=== PATIENT | female | born 1980 | race Two or more races ===

== ENCOUNTER 2019-04-22 03:43 | Emergency (ER) | payer MEDICAID ==
[~2019-04-22] VITALS: Ht 162.6 cm; Wt 72.6 kg
[2019-04-22 05:41] LABS: Urine Amorphous Crystal FEW /hpf (None Seen); Urine Bacteria FEW /hpf (None Seen); Urine Blood 1+ /uL (Negative); Urine Specific Gravity 1.021 (1.001-1.035); Urine WBC 4 /hpf (0 - 5)
[2019-04-22 06:58] LABS: Mean Corpuscular Volume 77.6 fL (80.0-100.0)
[2019-04-22 06:59] LABS: Hematocrit 33.1 % (36.0-46.0); Hemoglobin 10.8 g/dL (12.2-16.2); Mean Corpuscular Hemoglobin 25.4 pg (28.0-32.0); Mean Corpuscular Hgb Conc. 32.8 g/dL (32.0-36.0); Platelet Count (auto) 351 10^3/uL (140-450); Red Blood Cells 4.26 10^6/uL (4.0-5.20); White Blood Cell 6.2 10^3/uL (4.4-10.8)
[2019-04-22 07:02] LABS: Red Cell Distribution Width 20.1 % (11.8-14.3)
[2019-04-22 07:03] LABS: Band Neutrophils % (manual) 0; Basophils % (manual) 0 (0.0-2.0); Blast Cells 0; Eosinophils % (manual) 0 (0-7); Metamyelocytes % 0; Myelocytes % 0; Promyelocytes % 0; Reactive Lymphocytes 0
[2019-04-22 07:15] LABS: Albumin 3.2 g/dL (3.4-5.0); BUN/Creatinine Ratio 19.1; Calcium 8.3 mg/dL (8.5-10.1); Potassium 3.9 mmol/L (3.5-5.1)
[2019-04-22 07:18] LABS: Bilirubin, Total 0.2 mg/dL (0.2-1.0); Total Protein 7.6 g/dL (6.4-8.2)
[2019-04-22 07:57] LABS: Lymphocytes % (manual) 29 (10.0-50.0); Monocytes % (manual) 2 (0-12)
[2019-04-22] MEDS ORDERED: cefTRIAXone SOD 1,000 MG VL IM ONE (08:00)
[2019-04-22] MEDS ORDERED: LIDOCAINE 1% HCL (LOCAL ANESTH.) INJ 20ML MDV ID ONE (08:30)
[2019-04-22] MEDS ORDERED: LIDOCAINE 1% HCL (LOCAL ANESTH.) INJ 20ML MDV IJ ONE (08:45)
[2019-04-22 09:05] VITALS: BP 119/72
== END 2019-04-22 10:29 | disposition home or self-care (01) ==
LOC: EDBD 03:43 → ER 03:46
DX: K80.20 Calculus of gallbladder without cholecystitis without obstruction (principal); N39.0 Urinary tract infection, site not specified; I10 Essential (primary) hypertension
CPT/HCPCS: 36415; 76705; 80053; 81001; 81025; 84702; 85007; 85027; 96372; 99284; J0696; J2001

== ENCOUNTER 2020-08-03 05:15 | Emergency (ER) | payer MEDICAID ==
[~2020-08-03] VITALS: Ht 162.6 cm; Wt 93.0 kg
[2020-08-03 06:29] LABS: Basophils # (auto) 0 10 ^3/uL (0-0.2); Eosinophils # (auto) 0 10 ^3/uL (0-0.8); Lymphocytes # (auto) 1.2 10 ^3/uL (0.4-5.4); Monocytes # (auto) 0.7 10 ^3/uL (0-1.3); Neutrophils # (auto) 4.2 10 ^3/uL (1.6-8.6); Nucleated Red Blood Cells % 0.1 %
[2020-08-03 06:32] LABS: Basophils % (auto) 0.3 % (0.0-2.0); Eosinophils % (auto) 0.2 % (0.0-7.0); Hematocrit 31.8 % (36.0-46.0); Hemoglobin 10.3 g/dL (12.2-16.2); Lymphocytes % (auto) 19.2 % (10.0-50.0); Mean Corpuscular Hemoglobin 22.9 pg (28.0-32.0); Mean Corpuscular Hgb Conc. 32.4 g/dL (32.0-36.0); Mean Corpuscular Volume 70.6 fL (80.0-100.0); Monocytes % (auto) 10.8 % (0.0-12.0); Neutrophils % (auto) 69.5 % (37.0-80.0); Platelet Count (auto) 448 10^3/uL (140-450); Red Blood Cells 4.51 10^6/uL (4.0-5.20); Red Cell Distribution Width 16.1 % (11.8-14.3); White Blood Cell 6.1 10^3/uL (4.4-10.8)
[2020-08-03 06:46] LABS: INR 0.95 (0.9-1.15); Partial Thromboplastin Time 23.9 sec (23.0-31.2)
[2020-08-03 07:12] LABS: Albumin 3.1 g/dL (3.4-5.0); Amylase 45 U/L (25-115); Anion Gap 7 (5-15); Blood Urea Nitrogen 5 mg/dL (7-18); Calcium 8.5 mg/dL (8.5-10.1); Carbon Dioxide 29 mmol/L (21-32); Chloride 103 mmol/L (98-107); Glucose 112 mg/dL (74-106); Lipase 121 U/L (73-393); Sodium 139 mmol/L (136-145)
[2020-08-03 07:18] LABS: Alanine Aminotransferase 83 U/L (13-56); Alkaline Phosphatase 156 U/L (45-117); Aspartate Aminotransferase 72 U/L (15-37); BUN/Creatinine Ratio 7.2; Bilirubin, Total 0.4 mg/dL (0.2-1.0); GFR African American 122 mL/min; GFR Non-African American 101 mL/min
[2020-08-03 07:37] LABS: Potassium 2.9 mmol/L (3.5-5.1)
[2020-08-03] MEDS ORDERED: POTASSIUM EFFERVESENT TAB 25 MEQ PO ONE (07:45)
[2020-08-03] MEDS ORDERED: cefTRIAXone 1GM/50ML D5W 50 ML IV ONE (08:30)
[2020-08-03 10:13] LABS: CRP High Sensitivity 0.192 mg/dL (< 0.3)
[2020-08-03] MEDS ORDERED: ONDANSETRON HCL 4 MG/2 ML VIAL ONE (10:29)
[2020-08-03] MEDS ORDERED: PANTOPRAZOLE 40 MG/10 ML VIAL INJ IV ONE (10:45)
[2020-08-03] MEDS ORDERED: ONDANSETRON HCL 4 MG/2 ML VIAL IV ONE (10:45)
[2020-08-03 12:00] VITALS: BP 126/77
== END 2020-08-03 13:10 | disposition home or self-care (01) ==
LOC: EDBD 05:15 → ER 05:15
DX: J18.9 Pneumonia, unspecified organism (principal); E87.6 Hypokalemia; E86.0 Dehydration; I10 Essential (primary) hypertension; Z20.828 Contact with and (suspected) exposure to other viral communicable diseases
CPT/HCPCS: 36415; 71045; 80053; 81025; 82150; 82728; 83605; 83615; 83690; 83880; 84484; 85025; 85610; 85730; 86141; 87040; 87426; 93005; 96365; 96375; 99285; C9113; C9803; J0696; J2405; U0003

== ENCOUNTER 2023-07-21 23:39 | Emergency (ER) | payer MEDICAID ==
[~2023-07-21] VITALS: Ht 162.6 cm; Wt 87.0 kg
[2023-07-21 23:56] VITALS: BP 152/74; PULSE 77; RESP 18; O2SAT 98
[2023-07-21] MEDS ORDERED: MUPI2OIN2 EX (23:56)
[2023-07-21] MEDS ORDERED: AUG875T PO (23:56)
[2023-07-22] MEDS ORDERED: TETANUS-DIPTH-ACEL PERTUSSIS 0.5ML SYR Tdap IM ONE
[2023-07-22] MEDS ORDERED: NEOMYCIN-BACITRACIN-POLYM UNITDOSE PKG TOP OINT TOP ONE
[2023-07-22] MEDS ORDERED: AMOXICILLIN/CLAVUL 875 MG TAB PO ONE
== END 2023-07-22 01:53 | disposition home or self-care (01) ==
LOC: ER 23:39
DX: S31.133A Puncture wound of abdominal wall without foreign body, right lower quadrant without penetration into peritoneal cavity, initial encounter (principal); S31.153A Open bite of abdominal wall, right lower quadrant without penetration into peritoneal cavity, initial encounter; W54.0XXA Bitten by dog, initial encounter; Y93.89 Activity, other specified; Y92.89 Other specified places as the place of occurrence of the external cause; Y99.8 Other external cause status
CPT/HCPCS: 90471; 90715

== ENCOUNTER 2025-08-13 02:22 | Inpatient (IN) | payer MEDICAID ==
[~2025-08-13] VITALS: Ht 162.6 cm; Wt 90.2 kg
[~2025-08-13 02:22] MED LIST: ACET-1882 PO; AUG875T PO; LIDO2SOL26 MT; MUPI2OIN2 EX; NAPR-746 PO; PENI500T2 PO
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
[2025-08-13] MEDS ORDERED: KETOROLAC TROMETH 30 MG/ML 1ML VIAL IM ONE (03:15)
[2025-08-13] MEDS: ACETAMINOPHEN 325 MG TAB PO ONE (03:15)
[2025-08-13 04:12] LABS: Chloride 104 mmol/L (98-107); Potassium 3.8 mmol/L (3.5-5.1); Sodium 138 mmol/L (136-145)
[2025-08-13 04:13] LABS: Anion Gap 10 (5-15); Carbon Dioxide 24 mmol/L (20-31)
[2025-08-13 04:14] LABS: Calcium 8.7 mg/dL (8.7-10.4)
[2025-08-13 04:18] LABS: BUN/Creatinine Ratio 14.3 (10.0-20.0); Blood Urea Nitrogen 10 mg/dL (9-23)
[2025-08-13 04:19] LABS: Glucose 119 mg/dL (74-106)
[2025-08-13 04:26] LABS: Mean Corpuscular Hemoglobin 16.4 pg (28.0-32.0)
[2025-08-13 04:28] LABS: Hematocrit 21.3 % (36.0-46.0); Mean Corpuscular Volume 55.7 fL (80.0-100.0); Nucleated Red Blood Cells % 0.0 %
[2025-08-13 04:37] LABS: Hemoglobin 6.3 g/dL (12.2-16.2)
[2025-08-13] MEDS: KETOROLAC TROMETH 30 MG/ML 1ML VIAL IV ONE (05:55)
[2025-08-13 06:08] VITALS: PULSE 66; RESP 11; O2SAT 96
[2025-08-13 06:45] LABS: Urine Protein, UAD Negative (Negative)
[2025-08-13] MEDS: IOHEXOL 300 MG/ML 100ML BOTTLE IJ ONE (07:31)
--- NOTE | 2025-08-13 07:59 | DVH ---
Exam: CT CT AB PEL WITH IV CON ONLY History: Lower abdominal pain Comparison Study: None Technique: Multidetector spiral CT of the abdomen was performed from lung bases to pubic symphysis. A xial imaging was performed with intravenous contrast following the uneventful administration of 100 m l Omnipaque 300. Coronal and sagittal multiplanar reformats were obtained from the axial data set by the technologist. Radiation Dose : 1. Abdomen/Pelvis: CTDIvol 19.67 mGy, DLP 1064.31 mGy*cm. Findings: Lung Bases: Lung bases are clear. Visualized portions of the heart and pericardium are unremarkable. Liver: The liver is normal in size. No focal lesions. Gallbladder and Biliary Tree: The gallbladder is surgically absent. No intrahepatic or extrahepatic b iliary ductal dilatation. Spleen: Unremarkable Pancreas: The pancreas enhances normally and there are no focal lesions. The main pancreatic duct is not dilated Adrenal Glands: Unremarkable Kidneys: Kidneys enhance symmetrically. No calculi or hydronephrosis. GI tract: The stomach is grossly normal in appearance. No evidence of small bowel wall thickening or abnormal dilatation to suggest bowel obstruction. The colon is unremarkable. The appendix is visualiz ed and there is no evidence of acute appendicitis. Peritoneum/mesentery/retroperitoneum. No evidence of free intraperitoneal air. No ascites. No evidenc e of suspicious lymphadenopathy. Abdominal Wall: Unremarkable. Vasculature: Abdominal aorta and main branches are unremarkable. Normal vascular enhancement. Urinary Bladder: Grossly unremarkable for degree of distention. Pelvic Organs: There is marked fluid distention of the endometrium. Status post tubal ligation in th e bilateral adnexae. Left adnexal cystic lesion is noted measuring 2.5 cm. Musculoskeletal: No aggressive focal bony lesions, acute fractures or dislocation. Soft tissues: There is a fat containing umbilical hernia. IMPRESSION: 1. Marked fluid distention of the endometrium. Pelvic ultrasound is recommended for further evaluati on. 2. Left adnexal cystic lesion measuring 2.5 cm. 3. Status post cholecystectomy.
--- NOTE | 2025-08-13 08:42 | DVHHP2 ---
History of Present Illness Reason for Visit: Abdominal pain History of Present Illness Yolis Anderson is a 45-year-old female with past medical history of anemia, who came to the hospital for abdominal pain. Patient states she began having LLQ abdomial pain about 2 days ago. The pain continued to worsen prompting her to come to the hospital. Once here it was discovered that she had severe anemia. She states she has been anemic for years. She was taking iron PO, but stopped a little over a month ago due to constipation. She has required blood transfusions in the past. The first was when she had her and the second time was around [id number]. Patient states she has heavy menstrual cycles intermittently for the last couple of years. States she did see an EDITOR MANAGING DIRECTOR about it a few years ago, but nothing was done at the time. Last menstrual cycle was 07/21/2025. Heme/Onc: Anemia NOS Past Surgical History: Cholecystectomy, (x 1), Tubal Ligation Smoke: No ALCOHOL: none Drugs: None Lives: with Family Domestic Violence: Neg Review of Systems Constitutional: No: Fever, Chills, Sweats, Weakness, Malaise, Other Eyes: No: Pain, Vision change, Conjunctivae inflammation, Eyelid inflammation, Other, Redness ENT: No: Ear pain, Ear discharge, Nose pain, Nose discharge, Nose congestion, Mouth pain, Mouth swelling, Throat pain, Throat swelling, Other Respiratory: No: Cough, Dry, Shortness of breath, SOB with excertion, Wheezing, Hemoptysis, Pleuritic Pain, Sputum, Wheezing, Other Cardiovascular: No: Chest Pain, Palpitations, Orthopnea, Paroxysmal Noc. Dyspnea, Edema, Lt Headedness, Other Gastrointestinal: Abdominal Pain (LLQ/pelvic); No: Nausea, Vomiting, Diarrhea, Constipation, Melena, Hematochezia, Other Genitourinary: No Dysuria, No Frequency, No Incontinence, No Hematuria, No Retention, No Other Musculoskeletal: No: other, neck pain, shoulder pain, arm pain, back pain, hand pain, leg pain, foot pain Skin: No: Rash, Lesions, Jaundice, Bruising, Other Neurological: No: Weakness, Numbness, Incoordination, Change in speech, Confusion, Seizures, Other Allergies: Coded Allergies: NO KNOWN ALLERGIES (Unverified , 04/22/19) Exam Vital Signs Vital Signs Date Time Temp Pulse Resp B/P (MAP) Pulse Ox O2 Delivery O2 Flow Rate FiO2 08/13/25 06:08 66 11 96 Room Air* 0 21 08/13/25 06:00 97.9 129/79 (96) 97.9 General Appearance: Alert, Oriented X3, Cooperative, mild distress HEENT: Atraumatic, PERRLA, Other (Mucous membr dry) Respiratory: Clear to auscultation, Normal air movement Cardiovascular: Regular rate, Normal S1, Normal S2, No murmurs Abdominal: Normal bowel sounds, Soft, No hepatospenomegaly, Other (LLQ tenderness) Extremities: No clubbing, No cyanosis, No edema, Normal pulses, No tenderness/swelling Skin: No rashes, No breakdown, No significant lesion Neuro: Normal gait, Normal speech, Strength at 5/5 X4 ext Psych/Mental Status: Mental status NL, Mood NL Labs/Xrays Labs Test 08/13/25 03:37 08/13/25 02:44 Range/Units White Blood Count 7.6 4.4-10.8 10^3/uL Red Blood Count 3.82 L 4.0-5.20 10^6/uL Hemoglobin 6.3 *L 12.2-16.2 g/dL Hematocrit 21.3 L 36.0-46.0 % Mean Corpuscular Volume 55.7 L 80.0-100.0 fL Mean Corpuscular Hemoglobin 16.4 L 28.0-32.0 pg Mean Corpuscular Hemoglobin Concent 29.5 L 32.0-36.0 g/dL Red Cell Distribution Width 19.1 H 11.8-14.3 % Platelet Count 576 H 140-450 10^3/uL Mean Platelet Volume 8.5 6.9-10.8 fL Neutrophils (%) (Auto) 68.7 37.0-80.0 % Lymphocytes (%) (Auto) 23.7 10.0-50.0 % Monocytes (%) (Auto) 6.4 0.0-12.0 % Eosinophils (%) (Auto) 0.7 0.0-7.0 % Basophils (%) (Auto) 0.5 0.0-2.0 % Neutrophils # (Auto) 5.2 1.6-8.6 10 ^3/uL Lymphocytes # (Auto) 1.8 0.4-5.4 10 ^3/uL Monocytes # (Auto) 0.5 0-1.3 10 ^3/uL Eosinophils # (Auto) 0.1 0-0.8 10 ^3/uL Basophils # (Auto) 0 0-0.2 10 ^3/uL Nucleated Red Blood Cells 0.0 % Sodium Level 138 136-145 mmol/L Potassium Level 3.8 3.5-5.1 mmol/L Chloride Level 104 98-107 mmol/L Carbon Dioxide Level 24 20-31 mmol/L Anion Gap 10 5-15 Blood Urea Nitrogen 10 9-23 mg/dL Creatinine 0.70 0.550-1.02 mg/dL Glomerular Filtration Rate Calc 110 >90 mL/min BUN/Creatinine Ratio 14.3 10.0-20.0 Serum Glucose 119 H 74-106 mg/dL Calcium Level 8.7 8.7-10.4 mg/dL Urine Color Light-yellow Yellow Urine Clarity Clear Clear Urine pH 6.0 5.0-9.0 Urine Specific [place] 1.021 1.001-1.035 Urine Protein Negative Negative Urine Ketones Negative Negative Urine Blood Negative Negative /uL Urine Nitrite Negative Negative Urine Bilirubin Negative Negative Urine Urobilinogen Normal Negative mg/dL Urine Leukocyte Esterase 1+ Negative /uL Urine RBC <1 0 - 4 /hpf Urine Microscopic WBC 1 0-5 /HPF Urine Squamous Epithelial Cells Few <5 /hpf Urine Bacteria None seen None Seen /hpf Urine Glucose Normal Normal mg/dL Exam: CT CT AB PEL WITH IV CON ONLY Findings: Lung Bases: Lung bases are clear. Visualized portions of the heart and pericardium are unremarkable. Liver: The liver is normal in size. No focal lesions. Gallbladder and Biliary Tree: The gallbladder is surgically absent. No intrahepatic or extrahepatic biliary ductal dilatation. Spleen: Unremarkable Pancreas: The pancreas enhances normally and there are no focal lesions. The main pancreatic duct is not dilated Adrenal Glands: Unremarkable Kidneys: Kidneys enhance symmetrically. No calculi or hydronephrosis. GI tract: The stomach is grossly normal in appearance. No evidence of small bowel wall thickening or abnormal dilatation to suggest bowel obstruction. The colon is unremarkable. The appendix is visualized and there is no evidence of acute appendicitis. Peritoneum/mesentery/retroperitoneum. No evidence of free intraperitoneal air. No ascites. No evidence of suspicious lymphadenopathy. Abdominal Wall: Unremarkable. Vasculature: Abdominal aorta and main branches are unremarkable. Normal vascular enhancement. Urinary Bladder: Grossly unremarkable for degree of distention. Pelvic Organs: There is marked fluid distention of the endometrium. Status post tubal ligation in the bilateral adnexae. Left adnexal cystic lesion is noted measuring 2.5 cm. Musculoskeletal: No aggressive focal bony lesions, acute fractures or dislocation. Soft tissues: There is a fat containing umbilical hernia. IMPRESSION: 1. Marked fluid distention of the endometrium. Pelvic ultrasound is recommended for further evaluation. 2. Left adnexal cystic lesion measuring 2.5 cm. 3. Status post cholecystectomy. SEPSIS Sepsis Screen Date sepsis recognized/suspect: Aug 13, 2025 Time Sepsis recognized/suspect: 050 Recent Procedure: No On Antibiotic Therapy: No Respiratory Rate >20: No Heart Rate >90: No Temp<36 C (96.8 F) or >38.3 C: No SBP <90 or MAP <65 mmHG: No New Acute Mental Status Change: No Is the patient on CPAP, BIPAP,: No Physician Orders Type And Screen (08/13/25 04:54) Administer Blood Products UD (08/13/25 04:54) Stool Occult Blood (08/13/25 04:54) Ct Ab Pel With Iv Con Only (08/13/25 04:56) Admit (08/13/25 08:37) Code Status (08/13/25 08:37) Hydrocodone-Acet 5/325mg Tab ([place] 5/32 (08/13/25 08:45) Ondansetron Hcl (Zofran) (08/13/25 08:45) Docusate Sodium Capsule (Colace Capsule) (08/13/25 08:45) Complete Blood Count (08/14/25 04:00) Comprehensive Metabolic Panel (08/14/25 04:00) Condition: Critical (08/13/25 08:37) Acetaminophen Tablet (Tylenol Tablet) (08/13/25 08:45) Vital Signs Date Time Temp Pulse Resp B/P (MAP) Pulse Ox O2 Delivery O2 Flow Rate FiO2 08/13/25 06:08 66 11 96 Room Air* 0 21 08/13/25 06:00 97.9 77 18 129/79 (96) 96 97.9 08/13/25 05:10 57 18 133/76 (95) 98 08/13/25 03:15 97.9 08/13/25 02:22 98.7 73 18 167/77 98 98.7 Laboratory Tests Test 08/13/25 03:37 White Blood Count 7.6 10^3/uL (4.4-10.8) Medications Medications Dose Ordered Sig/Colin Route Start Time Stop Time Status Last Admin Dose Admin Acetaminophen 650 mg ONCE ONCE PO 08/13/25 03:15 08/13/25 03:16 DC 08/13/25 03:15 650 MG Ketorolac Tromethamine 15 mg ONCE ONCE IV 08/13/25 05:45 08/13/25 05:46 DC 08/13/25 05:55 15 MG Tramadol HCl 50 mg ONCE ONCE PO 08/13/25 03:15 08/13/25 03:16 DC 08/13/25 03:15 50 MG Assessment/Plan Assessment/Plan Assessment: Severe anemia, Left adnexal cystic lesion, Plan: Admit to Med-Surg, Transfuse 1 unit PRBC, Manage/Monitor H&H closely, Pelvic ultrasound, Consider EDITOR MANAGING DIRECTOR consult, Plan discussed with: Patient My Orders Orders - NATHAN HUFFMAN Procedure Category Date Status Time Admit ADMIT 08/13/25 Verified 08:37 Code Status CODE 08/13/25 Verified 08:37 Hydrocodone-Acet PHA 08/13/25 Verified 5/325mg Tab ([place] 08:45 Ondansetron Hcl PHA 08/13/25 Verified (Zofran) 08:45 Docusate Sodium PHA 08/13/25 Verified Capsule (Colace 08:45 Complete Blood Count LAB 08/14/25 Verified 04:00 Comprehensive LAB 08/14/25 Verified Metabolic Panel 04:00 Condition: Critical KATHY 08/13/25 Verified 08:37 Acetaminophen Tablet PHA 08/13/25 Verified (Tylenol Tablet) 08:45 Date of Service: Aug 13, 2025 Billing Provider: NATHAN HUFFMAN Common Visit Codes: [id number] INP/OBS CARE (HIGH) NATHAN HUFFMAN Aug 13, 2025 08:42
[2025-08-13] MEDS ORDERED: ACETAMINOPHEN 325 MG TAB PO PRN (08:45)
[2025-08-13] MEDS ORDERED: ONDANSETRON HCL 4 MG/2 ML VIAL IV PRN (08:45)
[2025-08-13] MEDS ORDERED: DOCUSATE SOD 100 MG CAP PO PRN (08:45)
--- NOTE | 2025-08-13 09:27 | DVH ---
INDICATION: Abdominal pain, heavy periods, severe anemia TECHNIQUE: Multiple real-time grayscale transabdominal sonographic images along with color and duplex Doppler of the uterus and ovaries were obtained. COMPARISON: None FINDINGS: The uterus measures 12 X 10 X 8 cm. The endometrial stripe measures 0.9cm. Right ovary not seen. Left ovary measures 4 x 3 x 3 cm. 3 cm left ovarian cyst. IMPRESSION: 1. Endometrium appears complex with fluid collection measuring 6 cm. Follow-up ultrasound at differen t phase of menstrual cycle.
[2025-08-13] MEDS ORDERED: DOCU-265 PO (10:27)
[2025-08-13] MEDS ORDERED: FERR325T20 PO (10:27)
[2025-08-13 12:10] VITALS: BP 145/83; PULSE 67; RESP 12; TEMP 98.4
[2025-08-13 12:25] VITALS: BP 143/88; PULSE 58; RESP 18; TEMP 98.1
[2025-08-13 15:32] VITALS: BP 138/78; PULSE 71; RESP 16; TEMP 98.6
[2025-08-13 17:00] VITALS: BP 129/64; PULSE 55; RESP 18; TEMP 97.9; O2SAT 99
[2025-08-13 18:25] LABS: Hematocrit 24.3 % (36.0-46.0); Hemoglobin 7.4 g/dL (12.2-16.2); Mean Corpuscular Hemoglobin 17.6 pg (28.0-32.0); Nucleated Red Blood Cells % 0.1 %
[2025-08-13 18:28] LABS: Mean Corpuscular Volume 57.6 fL (80.0-100.0)
[2025-08-13 19:12] LABS: Anisocytosis Slight
[2025-08-13 19:13] LABS: Tear Drop Cells FEW
[2025-08-13 21:00] VITALS: BP 128/59; PULSE 62; RESP 16; TEMP 98.1; O2SAT 98
[2025-08-13] MEDS: DOCUSATE SOD 100 MG CAP PO SCH (22:00)
[2025-08-13] MEDS ORDERED: PATIENTS OWN MEDICATION (Ferrous Sulfate (Ferosul) 325 MG) PO SCH (22:00)
[2025-08-13] MEDS: FERROUS SULFATE 325mg EC TAB PO SCH (22:00)
[2025-08-13] MEDS: HYDROcodone-ACET 5/325MG TAB PO PRN (22:42)
[2025-08-14 01:00] VITALS: BP 129/65; PULSE 61; RESP 18; TEMP 97.8; O2SAT 99
[2025-08-14 05:00] VITALS: BP 146/76; PULSE 70; RESP 18; TEMP 97.5; O2SAT 98
[2025-08-14 06:07] LABS: Hematocrit 25.7 % (36.0-46.0); Hemoglobin 7.7 g/dL (12.2-16.2); Mean Corpuscular Hemoglobin 17.5 pg (28.0-32.0); Mean Corpuscular Volume 58.0 fL (80.0-100.0); Nucleated Red Blood Cells % 0.2 %
[2025-08-14 06:28] LABS: Alanine Aminotransferase 10 U/L (7-40); Albumin 4.2 g/dL (3.2-4.8); Alkaline Phosphatase 111 U/L (46-116); Anion Gap 9 (5-15); BUN/Creatinine Ratio 11.8 (10.0-20.0); Calcium 8.7 mg/dL (8.7-10.4); Carbon Dioxide 27 mmol/L (20-31); Chloride 105 mmol/L (98-107); Glucose 99 mg/dL (74-106); Potassium 4.1 mmol/L (3.5-5.1); Sodium 141 mmol/L (136-145); Total Protein 8.0 g/dL (5.7-8.2)
[2025-08-14 06:29] LABS: Bilirubin, Total 0.5 mg/dL (0.2-1.0)
[2025-08-14 06:30] LABS: Blood Urea Nitrogen 8 mg/dL (9-23)
[2025-08-14] MEDS ORDERED: FER325T PO (07:52)
[2025-08-14] MEDS ORDERED: HYDR-4902 PO (07:52)
--- NOTE | 2025-08-14 07:58 | DVHDS2 ---
Discharge Summary Date of Admission Aug 13, 2025 at 08:37 Date of Discharge: Aug 14, 2025 Admitting Diagnosis Symptomatic anemia Labs/Diagnostic Data: Laboratory Results Test 08/14/25 05:42 08/13/25 18:08 08/13/25 02:44 White Blood Count 6.6 10^3/uL (4.4-10.8) Red Blood Count 4.43 10^6/uL (4.0-5.20) Hemoglobin 7.7 g/dL (12.2-16.2) Hematocrit 25.7 % (36.0-46.0) Mean Corpuscular Volume 58.0 fL (80.0-100.0) Mean Corpuscular Hemoglobin 17.5 pg (28.0-32.0) Mean Corpuscular Hemoglobin Concent 30.1 g/dL (32.0-36.0) Red Cell Distribution Width 20.1 % (11.8-14.3) Platelet Count 592 10^3/uL (140-450) Mean Platelet Volume 8.3 fL (6.9-10.8) Neutrophils (%) (Auto) 57.3 % (37.0-80.0) Lymphocytes (%) (Auto) 32.2 % (10.0-50.0) Monocytes (%) (Auto) 8.5 % (0.0-12.0) Eosinophils (%) (Auto) 1.3 % (0.0-7.0) Basophils (%) (Auto) 0.7 % (0.0-2.0) Neutrophils # (Auto) 3.8 10 ^3/uL (1.6-8.6) Lymphocytes # (Auto) 2.1 10 ^3/uL (0.4-5.4) Monocytes # (Auto) 0.6 10 ^3/uL (0-1.3) Eosinophils # (Auto) 0.1 10 ^3/uL (0-0.8) Basophils # (Auto) 0 10 ^3/uL (0-0.2) Nucleated Red Blood Cells 0.2 % Sodium Level 141 mmol/L (136-145) Potassium Level 4.1 mmol/L (3.5-5.1) Chloride Level 105 mmol/L (98-107) Carbon Dioxide Level 27 mmol/L (20-31) Anion Gap 9 (5-15) Blood Urea Nitrogen 8 mg/dL (9-23) Creatinine 0.68 mg/dL (0.550-1.02) Glomerular Filtration Rate Calc 111 mL/min (>90) BUN/Creatinine Ratio 11.8 (10.0-20.0) Serum Glucose 99 mg/dL (74-106) Calcium Level 8.7 mg/dL (8.7-10.4) Total Bilirubin 0.5 mg/dL (0.2-1.0) Aspartate Amino Transferase (AST) 14 U/L (13-40) Alanine Aminotransferase (ALT) 10 U/L (7-40) Alkaline Phosphatase 111 U/L (46-116) Total Protein 8.0 g/dL (5.7-8.2) Albumin 4.2 g/dL (3.2-4.8) Platelet Estimate Increased Hypochromasia (manual) Marked Anisocytosis (manual) Slight Microcytosis Marked Tear Drop Cells Few Urine Color Light-yellow (Yellow) Urine Clarity Clear (Clear) Urine pH 6.0 (5.0-9.0) Urine Specific [place] 1.021 (1.001-1.035) Urine Protein Negative (Negative) Urine Ketones Negative (Negative) Urine Blood Negative /uL (Negative) Urine Nitrite Negative (Negative) Urine Bilirubin Negative (Negative) Urine Urobilinogen Normal mg/dL (Negative) Urine Leukocyte Esterase 1+ /uL (Negative) Urine RBC <1 /hpf (0 - 4) Urine Microscopic WBC 1 /HPF (0-5) Urine Squamous Epithelial Cells Few /hpf (<5) Urine Bacteria None seen /hpf (None Seen) Urine Glucose Normal mg/dL (Normal) Other Laboratory Tests 08/14/25 05:42 Brief Hx & Hospital Course: History of Present Illness Yolis Anderson is a 45-year-old female with past medical history of anemia, who came to the hospital for abdominal pain. Patient states she began having LLQ abdomial pain about 2 days ago. The pain continued to worsen prompting her to come to the hospital. Once here it was discovered that she had severe anemia. She states she has been anemic for years. She was taking iron PO, but stopped a little over a month ago due to constipation. She has required blood transfusions in the past. The first was when she had her and the second time was around [id number]. Patient states she has heavy menstrual cycles intermittently for the last couple of years. States she did see an F[employer]ER [employer]TER HELPER about it a few years ago, but nothing was done at the time. Last menstrual cycle was 07/21/2025. Course of hospitalization: Patient has CT scan of the abdomen and pelvis which revealed left adnexal cystic lesion. Patient currently not on her menstruation, but does report having some crampy, as if she has been found to have having menstruation. Patient also has a history of iron-deficiency anemia, for which she has been off iron supplementation secondary to constipation. Patient states that she currently does not have a prescription heart medications at home for her ADA. She received 1 unit PRBC, with H and H holding at 7.7 and 25.7. Patient is agreeable to be discharged home and follow up with her primary OBGYN as an outpatient for further treatment of her dysmenorrhea and her PCP regarding her ID. Patient will have a prescription of Wilson and iron supplementation with the time of discharge. She is agreeable with discharge plan. All questions answered. Physical examination General: Alert and Oriented x3. No acute distress. Well-nourished. Obese Eyes: EOMI. Anicteric. HENT: Moist mucous membranes. Lungs: Clear to auscultation bilaterally. No accessory muscle use. Cardiovascular: Regular rate and rhythm. No murmur. No JVD. Abdomen: Soft, non-tender and non-distended. No palpable masses. Extremities: No edema. Non-tender. Skin: No rashes or lesions. Warm. Neurologic: No focal neurological deficits. CN II-XII grossly intact, but not individually tested. Psychiatric: Cooperative. Appropriate mood and affect. Total time spent with patient discussing and formulating plan of care: 35 minutes. This medical document was created using an electronic medical record system with [employer] dictation system. Although this document has been carefully reviewed, there may still be some phonetic and typographical errors. These areas are purely typographical due to imperfections of the software programs, and do not reflect any compromise in the patient's medical care. Condition at Discharge: Fair Final Diagnosis/Problems List Symptomatic Anemia, LORRI Left adnexal cystic lesion Dysmenorrhea Discharge Disposition: Home Discharge Instruct/Medications Diet: Regular Activity: No Restrictions, As Tolerated Follow Up/Referral: Follow up with PCP in 1-2 weeks Follow up with outpatient OBGYN to discuss further treatment for dysmenorrhea Medications: Ferrous sulfate 325 mg p.o. b.i.d. Wilson 5/325 q.8 hours as needed for [id number] pain Scheduled Acetaminophen (Acetaminophen), 325 MG PO TID Docusate Sodium (Docusate Sodium), 1 CAP PO BID, (Reported) Ferrous Sulfate (Ferosul), 325 MG PO BID, (Reported) Ferrous Sulfate (Ferrous Sulfate), 1 TAB PO BID Scheduled PRN Hydrocodone-Acetaminophen (Hydrocodone Bitartrate/AC 5-325 mg), 1 TAB PO Q8HP PRN Discontinued Medications Amoxicillin & Pot Clavulanate (Augmentin Tablet), 1 TAB PO BID Lidocaine HCl (Mouth-Throat) (Lidocaine HCl Viscous), 15 ML MT TID Naproxen (Naproxen), 500 MG PO BIDPC Penicillin V Potassium (Veetids), 1 TAB PO BID 36 Discharge Statement: "Patient was advised to return to the ER or call 911 if any headaches, dizziness, shortness of breath, chest pain, abdominal pain, bleeding, fevers, or worsening of medical condition. Patient was counseled about treatment plan, medications, possible side effects, patientverbalized understanding. All questions were answered to the best of my ability. This discharge took greater then 30 minutes in planning, reviewing documentation, counseling the patient, and discussing with other team members." ASSESSMENT ASSESSMENT Assessment Symptomatic Anemia Date of Service: Aug 14, 2025 Billing Provider: MONY RANDLE NP Common Visit Codes: 93948-AEP/OBS DISCH DAY >30min MONY RANDLE NP Aug 14, 2025 07:58
[2025-08-14 09:11] VITALS: BP 124/70; PULSE 68; RESP 18; TEMP 98.1; O2SAT 97
[2025-08-14] MEDS ORDERED: FERROUS SULFATE 325mg EC TAB PO SCH (10:00)
== END 2025-08-14 10:09 | disposition home or self-care (01) | DRG 663 ==
LOC: ER 02:22 → OVERFLOW 08:37
PROVIDERS: ADMIT Nurse Practitioner Acute Care; ATTEND Nurse Practitioner Acute Care
PROC: 30233N1 Transfusion of Nonautologous Red Blood Cells into Peripheral Vein, Percutaneous Approach (ICD-10-PCS; principal; 2025-08-13)
DX: D50.9 Iron deficiency anemia, unspecified (principal); I10 Essential (primary) hypertension; N94.6 Dysmenorrhea, unspecified; N83.292 Other ovarian cyst, left side; N92.0 Excessive and frequent menstruation with regular cycle; Z90.49 Acquired absence of other specified parts of digestive tract; Z79.899 Other long term (current) drug therapy
CPT/HCPCS: 36415; 74177; 76830; 76856; 80048; 80053; 81001; 85025; 86850; 86900; 86901; 86920; 96374; G0378; J1885

== ENCOUNTER 2025-08-26 04:01 | Emergency (ER) | payer MEDICAID ==
[~2025-08-26] VITALS: Ht 162.6 cm; Wt 88.3 kg
[~2025-08-26 04:01] MED LIST changes: -AUG875T PO; +DOCU-265 PO; +FER325T PO; +FERR325T20 PO; +HYDR-4902 PO; -LIDO2SOL26 MT; -MUPI2OIN2 EX; -NAPR-746 PO; -PENI500T2 PO
--- NOTE | 2025-08-26 04:27 | ED.PDOC ---
GI ASSESSMENT HPI Comments 45-year-old female who came to ER for abdominal pain. Patient was admitted here last August 13, complaining of left lower quadrant abdominal pain, diagnosed with 1. Symptomatic Anemia, LORRI, 2. Left adnexal cystic lesion, 3. Dysmenorrhea. Sent home with [place] as pain medications. Recurrence of left lower quadrant abdominal pain prompted patient to come to the ER Chief Complaint: Abdominal Pain Time Seen by MD: 04:25 Primary Care Provider: None Reviewed Notes: Nurses Notes Allergies: Coded Allergies: NO KNOWN ALLERGIES (Unverified , 08/13/25) Home Meds Active Scripts Hydrocodone-Acetaminophen (Hydrocodone Bitartrate/AC 5-325 mg) 1 Tab Tab, 1 TAB PO Q8HP PRN for 5 Days, #15 TAB Prov:MONY RANDLE ENTERTAINMENT DANCER 08/14/25 Ferrous Sulfate (FERROUS SULFATE) 325 Mg Tb, 1 TAB PO BID for 30 Days, #60 TAB 3 Refills Prov:MONY RANDLE ENTERTAINMENT DANCER 08/14/25 Acetaminophen (Acetaminophen) 325 Mg Tab, 325 MG PO TID for 7 Days, #21 TAB 0 Refills Prov:ZULY DELGADILLO NP 08/12/24 Reported Medications Docusate Sodium (Docusate Sodium) 100 Mg Cap, 1 CAP PO BID 08/13/25 Ferrous Sulfate (Ferosul) 325 Mg Tab, 325 MG PO BID 08/13/25 Information Source: Patient Mode of Arrival: Ambulatory Timing: Days Duration: Intermittent Past Medical History PAST MEDICAL HISTORY: Anemia, Gallstones, HTN Surgical History: MERCHANDISE DISTRIBUTOR History: Denies all MERCHANDISE DISTRIBUTOR Hx Family History Family History: Unknown Social History Smoker: Non-Smoker Alcohol: Denies ETOH Use Drugs: Denies Drug Use Lives In: Home Constitutional: denies: chills, diaphoresis, fatigue, fever, malaise, sweats, weakness, others Respiratory: denies: cough, hemoptysis, orthopnea, SOB at rest, shortness of breath, SOB with excertion, stridor, wheezing, others Cardiovascular: denies: chest pain, dizzy spells, diaphoresis, Dyspnea on exertion, edema, irregular heart beat, left arm pain, lightheadedness, palpitations, PND, syncope, others Gastrointestinal: reports: abdominal pain (Left lower quad); denies: abdomen distended, blood streaked bowels, constipated, diarrhea, dysphagia, difficulty swallowing, hematemesis, melena, nausea, poor appetite, poor fluid intake, rectal bleeding, rectal pain, vomiting, others Genitourinary: denies: abnormal vagina bleeding, burning, dyspareunia, dysuria, flank pain, frequency, hematuria, incontinence, pain, , vagina discharge, urgency, others Neurological: denies: dizziness, fainting, headache, left sided numbness, left sided weakness, numbness, paresthesia, pre-existing deficit, right sided numbness, right sided weakness, seizure, speech problems, tingling, tremors, weakness, others Musculoskeletal: denies: back pain, gout, joint pain, joint swelling, muscle pain, muscle stiffness, neck pain, others Integumetry: denies: bruises, change in color, change in hair/nails, dryness, laceration, lesions, lumps, rash, wounds, others Allergic/Immunocompromised: denies: Difficulty Healing, Frequent Infections, Hives, Itching, others Hematologic/Lymphatic: denies: anemia, blood clots, easy bleeding, easy bruising, swollen glands, others Endocrine: denies: excessive hunger, excessive sweating, excessive thirst, excessive urination, flushing, intolerance to cold, intolerance to heat, unexplained weight gain, unexplained weight loss, others Psychiatric: denies: anxiety, bipolar disorder, depression, hopeless, panic disorder, schizophrenia, sleepless, suicidal, others Physical Exam General Appearance: Moderate Distress, Normal HEENT: Normal ENT Inspection, Pharynx Normal, TMs Normal Neck: Full Range of Motion, Non-Tender, Normal, Normal Inspection Respiratory: Chest Non-Tender, Lungs Clear, No Accessory Muscle Use, No Respiratory Distress, Normal Breath Sounds Cardiovascular: No Edema, No JVD, No Murmur, No Gallop, Normal Peripheral Pulses, Regular Rate/Rhythm Breast Exam: Deferred Gastrointestinal: Diffuse, No Organomegaly, No Pulsatile Mass, Normal Bowel Sounds, Soft Genitalia: Deferred Pelvic: Deferred Rectal: Deferred Extremities: No calf tenderness, Normal capillary refill, Normal inspection, Normal range of motion, Non-tender, No pedal edema Musculoskeletal : Apperance: Normal Neurologic: Alert, single stayer operator II-XII nml as Tested, No Motor Deficits, Normal Affect, Normal Mood, No Sensory Deficits Cerebellar Function: Normal Reflexes: Normal Skin: Dry, Normal Color, Warm Peripheral Pulses: 3+ Radial (R), 3+ Radial (L) Lymphatic: No Adenopathy Was a procedure done? Was a procedure done?: No GI differential Dx Differential Diagnosis: Constipation, Diverticular disease, Esophagitis, Gastritis/PUD, Gastroenteritis, Ovarian cyst/torsion, Anemia, Other (Left adnexal cyst) X-Ray, Labs, Meds, VS Vital Signs Date Time Temp Pulse Resp B/P (MAP) Pulse Ox O2 Delivery O2 Flow Rate FiO2 08/26/25 06:04 70 16 98 Room Air* 0 21 08/26/25 05:25 70 17 153/98 08/26/25 05:12 98.8 70 18 153/98 (116) 99 98.8 08/26/25 04:01 98.9 76 18 145/87 97 98.9 Lab Test 08/26/25 04:38 Range/Units White Blood Count 6.1 4.4-10.8 10^3/uL Red Blood Count 4.21 4.0-5.20 10^6/uL Hemoglobin 7.8 L 12.2-16.2 g/dL Hematocrit 25.0 L 36.0-46.0 % Mean Corpuscular Volume 59.3 L 80.0-100.0 fL Mean Corpuscular Hemoglobin 18.6 L 28.0-32.0 pg Mean Corpuscular Hemoglobin Concent 31.3 L 32.0-36.0 g/dL Red Cell Distribution Width 25.3 H 11.8-14.3 % Platelet Count 596 H 140-450 10^3/uL Mean Platelet Volume 8.7 6.9-10.8 fL Neutrophils (%) (Auto) 69.5 37.0-80.0 % Lymphocytes (%) (Auto) 23.3 10.0-50.0 % Monocytes (%) (Auto) 6.2 0.0-12.0 % Eosinophils (%) (Auto) 0.5 0.0-7.0 % Basophils (%) (Auto) 0.5 0.0-2.0 % Neutrophils # (Auto) 4.2 1.6-8.6 10 ^3/uL Lymphocytes # (Auto) 1.4 0.4-5.4 10 ^3/uL Monocytes # (Auto) 0.4 0-1.3 10 ^3/uL Eosinophils # (Auto) 0 0-0.8 10 ^3/uL Basophils # (Auto) 0 0-0.2 10 ^3/uL Nucleated Red Blood Cells 0.1 % Platelet Estimate Increased Large Platelets Few Hypochromasia (manual) Moderate Anisocytosis (manual) Slight Microcytosis Marked Ovalocytes Few Sodium Level 141 136-145 mmol/L Potassium Level 3.7 3.5-5.1 mmol/L Chloride Level 106 98-107 mmol/L Carbon Dioxide Level 27 20-31 mmol/L Anion Gap 8 5-15 Blood Urea Nitrogen 9 9-23 mg/dL Creatinine 0.69 0.550-1.02 mg/dL Glomerular Filtration Rate Calc 110 >90 mL/min BUN/Creatinine Ratio 13.0 10.0-20.0 Serum Glucose 105 74-106 mg/dL Calcium Level 8.8 8.7-10.4 mg/dL Total Bilirubin 0.4 0.2-1.0 mg/dL Aspartate Amino Transferase (AST) 14 13-40 U/L Alanine Aminotransferase (ALT) < 9 7-40 U/L Alkaline Phosphatase 113 46-116 U/L Total Protein 8.4 H 5.7-8.2 g/dL Albumin 4.4 3.2-4.8 g/dL Lipase 31 12-53 U/L Current Medications Medications (Trade) Dose Ordered Sig/Colin Route Start Time Stop Time Status Last Admin Ondansetron HCl (Zofran) 4 mg ONCE ONCE IV 08/26/25 04:30 08/26/25 04:31 DC 08/26/25 05:28 Sodium Chloride 1,000 ml @ 1,000 mls/hr Q1H ONCE IVB 08/26/25 04:30 08/26/25 05:29 DC 08/26/25 05:28 Morphine Sulfate 4 mg ONCE ONCE IV 08/26/25 04:30 08/26/25 04:31 DC 08/26/25 05:25 Patient alert. Came in for vaginal bleeding. Vitals stable. Answering questions. Establish intravenous access. Was given fluids. Was given pain medication. Anemia. Was given ferrous sulfate. Reviewed ultrasound no change. CT scan of the abdomen does not show any acute abdominal but pelvic process. Patient we will be admitted for severe anemia. Continue monitoring. Time of 1ST Reevaluation: 04:26 Reevaluation 1ST: Unchanged Patient Education/Counseling: Diagnosis, Treatment Family Education/Counseling: Diagnosis, Treatment SEPSIS Sepsis Screen Date sepsis recognized/suspect: Aug 26, 2025 Time Sepsis recognized/suspect: 400 Recent Procedure: No On Antibiotic Therapy: No Respiratory Rate >20: No Heart Rate >90: No Temp<36 C (96.8 F) or >38.3 C: No SBP <90 or MAP <65 mmHG: No New Acute Mental Status Change: No Is the patient on CPAP, BIPAP,: No Physician Orders Urinalysis (08/26/25 04:07) Pelvic (08/26/25 04:21) Ct Ab Pel With Iv Con Only (08/26/25 04:21) Vital Signs Date Time Temp Pulse Resp B/P (MAP) Pulse Ox O2 Delivery O2 Flow Rate FiO2 08/26/25 06:04 70 16 98 Room Air* 0 21 08/26/25 05:25 70 17 153/98 08/26/25 05:12 98.8 70 18 153/98 (116) 99 98.8 08/26/25 04:01 98.9 76 18 145/87 97 98.9 Laboratory Tests Test 08/26/25 04:38 White Blood Count 6.1 10^3/uL (4.4-10.8) Medications Medications Dose Ordered Sig/Colin Route Start Time Stop Time Status Last Admin Dose Admin Morphine Sulfate 4 mg ONCE ONCE IV 08/26/25 04:30 08/26/25 04:31 DC 08/26/25 05:25 Ondansetron HCl 4 mg ONCE ONCE IV 08/26/25 04:30 08/26/25 04:31 DC 08/26/25 05:28 Sodium Chloride 1,000 ml @ 1,000 mls/hr Q1H ONCE IVB 08/26/25 04:30 08/26/25 05:29 DC 08/26/25 05:28 Departure 1 Departure Time of Disposition: 07:53 Impression: Primary Impression: Acute abdominal pain Additional Impressions: Severe anemia Ovarian cyst Qualified Codes: N83.201 - Unspecified ovarian cyst, right side Disposition: 09 ADMITTED INPATIENT Admit to: Med Surg Condition: Guarded Critical Care Note Critical Care Time?: No Stability Stability form required: No Heart Score Heart Score: Heart Score Response (Comments) Value History N/A 0 EKG N/A 0 Age N/A 0 Risk Factors N/A 0 Troponin N/A 0 Total 0 I personally scribed for ANDREW ELENA MD ([email or web address]) on 08/26/25 at 04:27. Electronically submitted by Kapil Dubose ([email or web address]). ANDREW ELENA MD Aug 26, 2025 04:27 YENIFER BALLARD MD Aug 26, 2025 07:54
[2025-08-26 05:04] LABS: Hemoglobin 7.8 g/dL (12.2-16.2)
[2025-08-26 05:08] LABS: Hematocrit 25.0 % (36.0-46.0); Mean Corpuscular Hemoglobin 18.6 pg (28.0-32.0); Mean Corpuscular Volume 59.3 fL (80.0-100.0); Nucleated Red Blood Cells % 0.1 %
[2025-08-26 05:12] VITALS: TEMP 98.8
[2025-08-26 05:17] LABS: Alkaline Phosphatase 113 U/L (46-116); Anion Gap 8 (5-15); BUN/Creatinine Ratio 13.0 (10.0-20.0); Calcium 8.8 mg/dL (8.7-10.4); Carbon Dioxide 27 mmol/L (20-31); Chloride 106 mmol/L (98-107); Glucose 105 mg/dL (74-106); Potassium 3.7 mmol/L (3.5-5.1); Sodium 141 mmol/L (136-145)
[2025-08-26 05:18] LABS: Albumin 4.4 g/dL (3.2-4.8); Bilirubin, Total 0.4 mg/dL (0.2-1.0)
[2025-08-26 05:25] VITALS: BP 153/98
[2025-08-26] MEDS: MORPHINE SULFATE 4 MG/ML SYR/VIAL IV ONE (05:25)
[2025-08-26 05:27] LABS: Alanine Aminotransferase < 9 U/L (7-40); Blood Urea Nitrogen 9 mg/dL (9-23); Total Protein 8.4 g/dL (5.7-8.2)
[2025-08-26] MEDS: ONDANSETRON HCL 4 MG/2 ML VIAL IV ONE (05:28)
[2025-08-26] MEDS: SODIUM CHLORIDE 0.9% 1,000 ML IVB ONE (05:28)
[2025-08-26] MEDS: IOHEXOL 300 MG/ML 100ML BOTTLE IJ ONE (05:47)
[2025-08-26 05:50] LABS: Lipase 31 U/L (12-53)
[2025-08-26 05:51] LABS: Anisocytosis Slight; Ovalocytes FEW
[2025-08-26 06:04] VITALS: PULSE 70; RESP 16; O2SAT 98
--- NOTE | 2025-08-26 06:22 | DVH ---
Exam: CT CT AB PEL WITH IV CON ONLY History: lower abd pain Comparison Study: US PELVIC on DOS: 08/13/25 Technique: Multidetector spiral CT of the abdomen was performed from lung bases to pubic symphysis. A xial imaging was performed with intravenous contrast following the uneventful administration of 100 m l Omnipaque 300. Coronal and sagittal multiplanar reformats were obtained from the axial data set by the technologist. Radiation Dose : 1. Abdomen/Pelvis: CTDIvol 21.8 mGy, DLP 1211.32 mGy*cm. Findings: Lung Bases: Lung bases are clear. Visualized portions of the heart and pericardium are unremarkable. Liver: The liver is normal in size. No focal lesions. Gallbladder and Biliary Tree: The gallbladder is surgically absent. Intrahepatic biliary ductal dila tation. The common bile duct is not dilated. Spleen: Unremarkable Pancreas: The pancreas enhances normally and there are no focal lesions. The main pancreatic duct is not dilated Adrenal Glands: Unremarkable Kidneys: Kidneys enhance symmetrically. No calculi or hydronephrosis. GI tract: The stomach is grossly normal in appearance. No evidence of small bowel wall thickening or abnormal dilatation to suggest bowel obstruction. The colon is unremarkable. The appendix is visuali zed and is normal. Peritoneum/mesentery/retroperitoneum. No evidence of free intraperitoneal air. Small volume pelvic fr ee fluid. No evidence of suspicious lymphadenopathy. Abdominal Wall: Unremarkable. Vasculature: Abdominal aorta and main branches are unremarkable. Normal vascular enhancement. Urinary Bladder: Grossly unremarkable for degree of distention. Pelvic Organs: Uterus is enlarged. There is fluid distending the endometrium. Status post tubal ligat ion. Musculoskeletal: No aggressive focal bony lesions, acute fractures or dislocation. IMPRESSION: 1. No acute abdominal or pelvic findings. 2. Fluid distending the endometrium. A similar finding was present on a pelvic ultrasound from 2024. Gynecologic consultation is suggested for further workup and management.
--- NOTE | 2025-08-26 07:26 | DVH ---
INDICATION: lower abd pain h/o adnexal lesion TECHNIQUE: Multiple real-time grayscale transabdominal sonographic images along with color and duplex Doppler of the uterus and ovaries were obtained. COMPARISON: US PELVIC on DOS: 08/13/25. CT abdomen pelvis same date. FINDINGS: The uterus measures 11.3 x 10.1 x 7.0 cm. The uterus is homogenous in echotexture. The endo metrial stripe not accurately measured due to marked fluid distending the endometrium that measures 5 .8 cm. The right ovary measures 2.8 x 2.1 x 2.1 cm. Multiple follicles noted. The left ovary measures 3.6 x 2.9 x 2.6 cm. There is a cyst in the left ovary measuring 2.2 x 2.0 x 1.6 cm. Subsequent color and duplex Doppler interrogation of the ovaries demonstrated symmetric vascular flow to both ovaries. No free fluid in the cul-de-sac. IMPRESSION: 1. Marked fluid distending the endometrium measuring 5.8 cm similar to prior ultrasound from 08/13/25. Gynecologic consultation is suggested for further workup and management. 2. Left ovarian cyst measuring 2.2 cm.
[2025-08-26 08:46] LABS: Urine Protein, UAD TRACE (Negative)
== END 2025-08-26 08:26 | disposition left against medical advice (07) ==
LOC: ER 04:01
DX: D50.9 Iron deficiency anemia, unspecified (principal); R10.32 Left lower quadrant pain; N83.202 Unspecified ovarian cyst, left side; I10 Essential (primary) hypertension; Z79.899 Other long term (current) drug therapy
CPT/HCPCS: 36415; 74177; 76830; 76856; 80053; 81001; 83690; 85025; 96361; 96374; 96375; 99285; J2270; J2405; J7030; Q9967

== ENCOUNTER 2025-09-13 00:48 | Emergency (ER) | payer MEDICAID ==
[~2025-09-13] VITALS: Ht 157.5 cm; Wt 89.3 kg
--- NOTE | 2025-09-13 01:23 | ED.PDOC ---
History of Present Illness HPI Comments 45-year-old female with past medical history of anemia , HTN (not currently on medications) presenting for evaluation of lightheadedness, nausea, shortness of breath which started a few hours ago. Patient reports that she was out working all day and did not eat much. Reports that after she left work she started feeling nauseous. She ate something and felt even more nauseous. Denies any abdominal pain with this. Reports feeling lightheaded, however, no room spinning sensation. Having some subjective shortness of breath with this. Reports last blood transfusion was about a month ago, last LMP was about 3 weeks ago. Has severe anemia related to having menstrual cycles. Is not currently menstruating. Reports compliance with her iron supplementation. Denies any fevers. No recent cough. No associated chest pain. Denies any increased lower extremity edema. Patient with elevated blood pressure upon arrival. She states that she last saw her primary care doctor a couple weeks ago. Has not been on hypertension medications for 1-2 years. Was told that her blood pressure was normal when she was in clinic within the past couple of weeks. Chief Complaint: Dizziness Time Seen by MD: 00:55 Primary Care Provider: None Allergies: Coded Allergies: NO KNOWN ALLERGIES (Unverified , 08/13/25) Home Meds Active Scripts Ondansetron HCl (Ondansetron) 4 Mg Tab, 4 MG PO Q6HPRN PRN for 3 Days, #12 TAB Prov:FAITH OLIVARES MD 09/13/25 Hydrocodone-Acetaminophen (Hydrocodone Bitartrate/AC 5-325 mg) 1 Tab Tab, 1 TAB PO Q8HP PRN for 5 Days, #15 TAB Prov:MONY RANDLE NP 08/14/25 Ferrous Sulfate (FERROUS SULFATE) 325 Mg Tb, 1 TAB PO BID for 30 Days, #60 TAB 3 Refills Prov:MONY RANDLE NP 08/14/25 Acetaminophen (Acetaminophen) 325 Mg Tab, 325 MG PO TID for 7 Days, #21 TAB 0 Refills Prov:ZULY DELGADILLO NP 08/12/24 Reported Medications Docusate Sodium (Docusate Sodium) 100 Mg Cap, 1 CAP PO BID 08/13/25 Ferrous Sulfate (Ferosul) 325 Mg Tab, 325 MG PO BID 08/13/25 Information Source: Patient Mode of Arrival: Ambulatory Past Medical History PAST MEDICAL HISTORY: Anemia, Gallstones, HTN 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 Family History Family History: Unknown Social History Smoker: Non-Smoker Alcohol: Denies ETOH Use Drugs: Denies Drug Use Lives In: Home Constitutional: denies: chills, diaphoresis, fatigue, fever, malaise, sweats, weakness, others EENTM: denies: blurred vision, double vision, ear bleeding, ear discharge, ear drainage, ear pain, ear ringing, eye pain, eye redness, hearing loss, mouth pain, mouth swelling, nasal discharge, nose bleeding, nose congestion, nose pain, photophobia, tearing, throat pain, throat swelling, voice changes, others Respiratory: reports: shortness of breath Cardiovascular: denies: chest pain, dizzy spells, diaphoresis, Dyspnea on exertion, edema, irregular heart beat, left arm pain, lightheadedness, palpitations, PND, syncope, others Gastrointestinal: reports: nausea Genitourinary: denies: abnormal vagina bleeding, burning, dyspareunia, dysuria, flank pain, frequency, hematuria, incontinence, pain, , vagina discharge, urgency, others Neurological: reports: dizziness Musculoskeletal: denies: back pain, gout, joint pain, joint swelling, muscle pain, muscle stiffness, neck pain, others Integumetry: denies: bruises, change in color, change in hair/nails, dryness, laceration, lesions, lumps, rash, wounds, others Allergic/Immunocompromised: denies: Difficulty Healing, Frequent Infections, Hives, Itching, others Hematologic/Lymphatic: denies: anemia, blood clots, easy bleeding, easy bruising, swollen glands, others Endocrine: denies: excessive hunger, excessive sweating, excessive thirst, excessive urination, flushing, intolerance to cold, intolerance to heat, unexplained weight gain, unexplained weight loss, others Physical Exam General Appearance: None HEENT: Normal ENT Inspection Neck: None Respiratory: No Accessory Muscle Use Cardiovascular: No JVD, Normal Peripheral Pulses, Regular Rate/Rhythm Breast Exam: Deferred Gastrointestinal: Non Tender, Soft Genitalia: Deferred Pelvic: Deferred Rectal: Deferred Extremities: Normal capillary refill Neurologic: Alert Cerebellar Function: Normal Reflexes: NOT DONE Skin: Normal Color Lymphatic: No Adenopathy Was a procedure done? Was a procedure done?: No EKG EKG : Pulse Rate (adult): 64 [place]: Normal Cardiac Rhythm: NSR Block: None Hypertrophy: None ST: Normal Differential Dx Considerations may include: Anemia versus pneumonia versus viral upper respiratory tract infection versus viral gastroenteritis X-Ray, Labs, Meds, VS Vital Signs Date Time Temp Pulse Resp B/P (MAP) Pulse Ox O2 Delivery O2 Flow Rate FiO2 09/13/25 02:32 64 09/13/25 00:51 97.2 84 18 185/80 100 97.2 Lab Test 09/13/25 01:14 Range/Units White Blood Count 9.6 4.4-10.8 10^3/uL Red Blood Count 4.36 4.0-5.20 10^6/uL Hemoglobin 8.0 L 12.2-16.2 g/dL Hematocrit 26.3 L 36.0-46.0 % Mean Corpuscular Volume 60.4 L 80.0-100.0 fL Mean Corpuscular Hemoglobin 18.3 L 28.0-32.0 pg Mean Corpuscular Hemoglobin Concent 30.3 L 32.0-36.0 g/dL Red Cell Distribution Width 27.2 H 11.8-14.3 % Platelet Count 574 H 140-450 10^3/uL Mean Platelet Volume 8.2 6.9-10.8 fL Neutrophils (%) (Auto) 83.6 H 37.0-80.0 % Lymphocytes (%) (Auto) 12.2 10.0-50.0 % Monocytes (%) (Auto) 3.5 0.0-12.0 % Eosinophils (%) (Auto) 0.2 0.0-7.0 % Basophils (%) (Auto) 0.5 0.0-2.0 % Neutrophils # (Auto) 8.1 1.6-8.6 10 ^3/uL Lymphocytes # (Auto) 1.2 0.4-5.4 10 ^3/uL Monocytes # (Auto) 0.3 0-1.3 10 ^3/uL Eosinophils # (Auto) 0 0-0.8 10 ^3/uL Basophils # (Auto) 0 0-0.2 10 ^3/uL Nucleated Red Blood Cells 0.0 % Platelet Estimate Pending Sodium Level 139 136-145 mmol/L Potassium Level 3.7 3.5-5.1 mmol/L Chloride Level 105 98-107 mmol/L Carbon Dioxide Level 26 20-31 mmol/L Anion Gap 8 5-15 Blood Urea Nitrogen 7 L 9-23 mg/dL Creatinine 0.70 0.550-1.02 mg/dL Glomerular Filtration Rate Calc 110 >90 mL/min BUN/Creatinine Ratio 10.0 10.0-20.0 Serum Glucose 117 H 74-106 mg/dL Calcium Level 9.1 8.7-10.4 mg/dL Troponin I High Sensitivity < 3 L </=34 ng/L Time of 1ST Reevaluation: 02:26 (Patient reports improvement of symptoms, still has mild nausea, however, no shortness for breath at this time.) Reevaluation 1ST: Improved Patient Education/Counseling: Diagnosis, Treatment, Need For Follow Up Family Education/Counseling: No Family Present SEPSIS Sepsis Screen Date sepsis recognized/suspect: Sep 13, 2025 Time Sepsis recognized/suspect: 53 Recent Procedure: No On Antibiotic Therapy: No Respiratory Rate >20: No Heart Rate >90: No Temp<36 C (96.8 F) or >38.3 C: No SBP <90 or MAP <65 mmHG: No New Acute Mental Status Change: No Is the patient on CPAP, BIPAP,: No Physician Orders Complete Blood Count (09/13/25 01:01) Urinalysis (09/13/25 01:01) Chest Xray 1 View (09/13/25 01:01) Electrocardigram (09/13/25 01:01) Rbc Morphology (09/13/25 01:14) Vital Signs Date Time Temp Pulse Resp B/P (MAP) Pulse Ox O2 Delivery O2 Flow Rate FiO2 09/13/25 02:32 64 09/13/25 00:51 97.2 84 18 185/80 100 97.2 Laboratory Tests Test 09/13/25 01:14 White Blood Count 9.6 10^3/uL (4.4-10.8) Departure 1 Departure Time of Disposition: 01:21 (45-year-old female with history of anemia presenting for evaluation of lightheadedness, nausea over the past day. Patient has no associated abdominal pain, is nauseous, however, not actually vomiting. Has no abdominal tenderness on examination, does not warrant CT imaging of the abdomen and pelvis affect do not suspect any acute infectious or surgical etiology picked up on CT. Patient reporting lightheadedness, screening EKG was obtained which shows no evidence of any arrhythmia. Given the patient's history of anemia with now lightheadedness could be consistent with symptomatic anemia. Hemoglobin today is 8, not within transfusion range, patient reports compliance with her iron supplementation. Patient reporting subjective shortness of breath, however, has normal work of breathing, normal oxygenation. Patient with no known history of heart failure, no signs of fluid overload on examination. Chest x-ray was performed which shows no evidence of increased pulmonary vascular congestion or cardiomegaly to suggest new onset heart failure. Patient with no fever, cough, chest x-ray was performed which upon my review shows no evidence of focal consolidation to suggest a bacterial pneumonia. Patient's blood pressure noted to be elevated, has had a history of elevated blood pressure in the past, however, not currently taking any medications. Was given a 1 time oral hydralazine dose. Blood pressure could have been elevated today due to discomfort. She states that when she was at her primary care doctor's office 2 weeks ago she had a normal blood pressure. She is recommended to follo w up with primary care doctor to have blood pressure repeated to ensure that she does not need to be restarted on blood pressure medications. Given all the symptoms together could be consistent with beginnings of a viral illness. Metabolic panel shows no evidence of any acute electrolyte abnormalities or acute kidney insufficiency. Patient was given oral Zofran for symptoms. Yusuf alvarez is not actively vomiting here. Feeling better after interventions. She is stable for discharge further outpatient management. Will be given a prescription for Zofran to take as needed.) Impression: Primary Impression: Nausea Additional Impression: Shortness of breath Disposition: 01 HOME / SELF CARE / HOMELESS Condition: Stable Additional Instructions: Your blood pressure was elevated today. You stated that your blood pressure was normal when you saw her primary care doctor earlier this month. However, please be sure to follow up and have your blood pressure repeated to ensure that you do not need to be restarted on blood pressure medications. e-Prescriptions Ondansetron HCl (Ondansetron) 4 Mg Tab 4 MG PO Q6HPRN PRN for 3 Days, #12 TAB Prov: FAITH OLIVARES MD 09/13/25 Discharged With: Self Critical Care Note Critical Care Time?: No Stability Stability form required: No Heart Score Heart Score: Heart Score Response (Comments) Value History Slightly Suspicious 0 EKG Normal 0 Age <45 0 Risk Factors No known risk factors 0 Troponin Normal limit 0 Total 0 FAITH OLIVARES MD Sep 13, 2025 01:23
[2025-09-13 01:26] LABS: Hemoglobin 8.0 g/dL (12.2-16.2); Nucleated Red Blood Cells % 0.0 %
[2025-09-13 01:27] LABS: Hematocrit 26.3 % (36.0-46.0); Mean Corpuscular Hemoglobin 18.3 pg (28.0-32.0); Mean Corpuscular Volume 60.4 fL (80.0-100.0)
[2025-09-13 01:41] LABS: Chloride 105 mmol/L (98-107); Potassium 3.7 mmol/L (3.5-5.1); Sodium 139 mmol/L (136-145)
[2025-09-13 01:42] LABS: Anion Gap 8 (5-15); Carbon Dioxide 26 mmol/L (20-31)
[2025-09-13 01:43] LABS: Calcium 9.1 mg/dL (8.7-10.4)
[2025-09-13 01:47] LABS: BUN/Creatinine Ratio 10.0 (10.0-20.0)
[2025-09-13 01:48] LABS: Blood Urea Nitrogen 7 mg/dL (9-23); Glucose 117 mg/dL (74-106)
--- NOTE | 2025-09-13 02:23 | DVH ---
CHEST RADIOGRAPH Indication: shortness of breath Technique: Single frontal view of the chest was obtained COMPARISON: None FINDINGS: Lines and Tubes: None Lungs: Clear Pleura: No effusion. No pneumothorax. Cardiomediastinal contours: Unremarkable Bones: Unremarkable IMPRESSION: 1. No acute disease.
[2025-09-13] MEDS ORDERED: ONDA-155 PO (02:32)
[2025-09-13 02:49] VITALS: BP 149/84; PULSE 68; RESP 18; TEMP 98.1; O2SAT 98
[2025-09-13] MEDS: ONDANSETRON ODT 4 MG TAB PO ONE (03:04)
[2025-09-13 06:45] LABS: Anisocytosis Moderate
--- NOTE | 2025-09-14 09:39 | ECG ---
[facility] Test Date: 2025-09-13 Test Time: 02:12:50 Pat Name: NIKKI PRADO Department: ED Room: Gender: F Systems Specialist: melina : 1980 Requested By: FAITH OLIVARES Order Number: [id number] Reading MD: Markel Perry Measurements Intervals Datil Rate: 64 P: 57 DE: 165 QRS: 42 QRSD: 97 T: 55 QT: 419 QTc: 433 Interpretive Statements Sinus rhythm Electronically Signed On 09-14-2025 17:03:14 PDT by Markel Perry Please click the below link to view image of tracing.
== END 2025-09-13 02:46 | disposition home or self-care (01) ==
LOC: ER 00:48
DX: R11.0 Nausea (principal); R06.02 Shortness of breath; I10 Essential (primary) hypertension; Z79.899 Other long term (current) drug therapy; Z98.890 Other specified postprocedural states
CPT/HCPCS: 36415; 71045; 80048; 84484; 85025; 93005; 99285; Q0162

== ENCOUNTER 2025-10-13 02:21 | Inpatient (IN) | payer MEDICAID ==
[~2025-10-13] VITALS: Ht 162.6 cm; Wt 84.0 kg
[~2025-10-13 02:21] MED LIST changes: +ONDA-155 PO
--- NOTE | 2025-10-13 03:01 | ED.PDOC ---
History of Present Illness HPI Comments 45-year-old female who came to ER via EMS for abdominal pain. Patient has been experiencing intermittent episodes of left lower quadrant abdominal pain for the past 2 months. 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 Patient medication with ibuprofen for the pain. Few hours ago, recurrence of left lower quadrant abdominal pain with nausea. Denies any fever, urinary symptoms or changes in bowel habits. REVIEW OF SYSTEMS: General: No fever, no chills, or fatigue HEENT: No sore throat, no earache, no congestion, no neck pain. Cardiac: No chest pain. No palpitations. Lungs: No shortness of breath, no cough. GI: No nausea, no vomiting, no diarrhea, no constipation, (+) abdominal pain : No dysuria, frequency, or urgency. No hematuria. Musculoskeletal: No joint pain , no joint swelling, no extremity edema. Skin: No rash, no itching. Neuro: No headache, no dizziness, no weakness EXAM: General: Awake, alert and oriented. No acute distress. Skin: Skin in warm, dry and intact. Appropriate color for ethnicity. HEENT: The head is normocephalic and atraumatic. Conjunctivae are clear without exudates or hemorrhage. Sclera is non-icteric. EOM are intact. No signs of nystagmus. Eyelids are normal in appearance without swelling or lesions. Oral mucosa is pink and moist Neck: The neck is supple with normal range of motion. No JVD. Cardiac: Heart rate and rhythm are normal. No murmurs, gallops, or rubs are auscultated. Respiratory: No signs of respiratory distress. Lung sounds are clear in all lobes bilaterally without rales, rhonchi, or wheezes. Abdominal: Abdomen is soft, LLQ tenderness. Bowel sounds are present and normoactive in all four quadrants. Extremities: Upper and lower extremities are atraumatic in appearance without deformity or edema. Neurological: The patient is awake, alert and oriented to person, place, and time with normal speech. Speech is clear. There is no facial asymmetry. Psychiatric: Appropriate mood and affect. Good judgement and insight Chief Complaint: Abdominal Pain Time Seen by MD: 03:00 Primary Care Provider: None Reviewed Notes: Nurses Notes Allergies: Coded Allergies: NO KNOWN ALLERGIES (Unverified , 08/13/25) Home Meds Active Scripts Ondansetron HCl (Ondansetron) 4 Mg Tab, 4 MG PO Q6HPRN PRN for 3 Days, #12 TAB Prov:FAITH OLIVARES MD 09/13/25 Hydrocodone-Acetaminophen (Hydrocodone Bitartrate/AC 5-325 mg) 1 Tab Tab, 1 TAB PO Q8HP PRN for 5 Days, #15 TAB Prov:MONY RANDLE QUILLER HAND 08/14/25 Acetaminophen (Acetaminophen) 325 Mg Tab, 325 MG PO TID for 7 Days, #21 TAB 0 Refills Prov:ZULY DELGADILLO NP 08/12/24 Reported Medications Docusate Sodium (Docusate Sodium) 100 Mg Cap, 1 CAP PO BID 08/13/25 Ferrous Sulfate (Ferosul) 325 Mg Tab, 325 MG PO BID 08/13/25 Discontinued Scripts Ferrous Sulfate (FERROUS SULFATE) 325 Mg Tb, 1 TAB PO BID for 30 Days, #60 TAB 3 Refills Prov:MONY RANDLE QUILLER HAND 08/14/25 Information Source: Patient, Emergency Med Personnel Mode of Arrival: EMS Past Medical History PAST MEDICAL HISTORY: Anemia, HTN 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 Was a procedure done?: No Differential Dx Considerations may include: Ovarian cyst, diverticulitis, colitis, urinary tract infection, kidney stone X-Ray, Labs, Meds, VS Vital Signs Date Time Temp Pulse Resp B/P (MAP) Pulse Ox O2 Delivery O2 Flow Rate FiO2 10/13/25 07:27 98.6 82 18 160/98 (118) 97 98.6 10/13/25 05:59 98.2 73 16 156/94 (114) 100 98.2 10/13/25 03:03 83 18 158/101 10/13/25 02:30 97.9 83 18 158/101 98 97.9 Lab Test 10/13/25 03:06 Range/Units White Blood Count 8.0 4.4-10.8 10^3/uL Red Blood Count 4.15 4.0-5.20 10^6/uL Hemoglobin 8.4 L 12.2-16.2 g/dL Hematocrit 27.0 L 36.0-46.0 % Mean Corpuscular Volume 65.0 L 80.0-100.0 fL Mean Corpuscular Hemoglobin 20.1 L 28.0-32.0 pg Mean Corpuscular Hemoglobin Concent 31.0 L 32.0-36.0 g/dL Red Cell Distribution Width 26.0 H 11.8-14.3 % Platelet Count 472 H 140-450 10^3/uL Mean Platelet Volume 8.4 6.9-10.8 fL Neutrophils (%) (Auto) 75.3 37.0-80.0 % Lymphocytes (%) (Auto) 16.4 10.0-50.0 % Monocytes (%) (Auto) 6.9 0.0-12.0 % Eosinophils (%) (Auto) 1.0 0.0-7.0 % Basophils (%) (Auto) 0.4 0.0-2.0 % Neutrophils # (Auto) 6.0 1.6-8.6 10 ^3/uL Lymphocytes # (Auto) 1.3 0.4-5.4 10 ^3/uL Monocytes # (Auto) 0.6 0-1.3 10 ^3/uL Eosinophils # (Auto) 0.1 0-0.8 10 ^3/uL Basophils # (Auto) 0 0-0.2 10 ^3/uL Nucleated Red Blood Cells 0.0 % Platelet Estimate Increased Hypochromasia (manual) Marked Anisocytosis (manual) Moderate Microcytosis Marked Ovalocytes Few Sodium Level 141 136-145 mmol/L Potassium Level 3.9 3.5-5.1 mmol/L Chloride Level 107 98-107 mmol/L Carbon Dioxide Level 25 20-31 mmol/L Anion Gap 9 5-15 Blood Urea Nitrogen 9 9-23 mg/dL Creatinine 0.68 0.550-1.02 mg/dL Glomerular Filtration Rate Calc 111 >90 mL/min BUN/Creatinine Ratio 13.2 10.0-20.0 Serum Glucose 126 H 74-106 mg/dL Calcium Level 8.8 8.7-10.4 mg/dL Current Medications Medications (Trade) Dose Ordered Sig/Colin Route Start Time Stop Time Status Last Admin Ondansetron HCl (Zofran) 4 mg ONCE ONCE IV 10/13/25 03:00 10/13/25 03:02 DC 10/13/25 03:04 Morphine Sulfate 2 mg ONCE ONCE IV 10/13/25 03:00 10/13/25 03:02 DC 10/13/25 03:03 Ketorolac Tromethamine (Toradol Injection) 15 mg ONCE ONCE IV 10/13/25 05:15 10/13/25 05:16 DC 10/13/25 07:35 Hydromorphone HCl (Dilaudid Injection) 0.5 mg ONCE ONCE IV 10/13/25 05:15 10/13/25 05:16 DC 10/13/25 07:36 Sodium Chloride 1,000 ml @ 1,000 mls/hr Q1H ONCE IV 10/13/25 05:15 10/13/25 06:14 DC 10/13/25 07:35 PROCEDURE: US PELVIC Date: 10/13/2025 04:09 AM HISTORY: Pelvic pain, L ovarian cyst COMPARISONS: US PELVIC on DOS: 08/26/25, US PELVIC on DOS: 08/13/25 TECHNIQUE:Transabdominal scanning is utilized. FINDINGS: Uterus: The uterus measures 11 cm by 11 cm by 9 cm. The endometrial cavity is distended with a large cystic appearing mass measuring 9 cm x 6 cm x 6 cm. This is similar to findings on recent prior studies but appears to have enlarged. Some echogenic debris is suspected within the fluid.. Right Ovary: The right ovary appears unremarkable. Arterial and venous vascular color and waveforms are with Doppler imaging. Left Ovary: The left ovary appears unremarkable.Arterial and venous vascular color and waveforms are with Doppler imaging. Adnexa: No adnexal masses are seen. Small amount of free fluid is seen in the posterior cul-de-sac. IMPRESSION: 1. Large cystic mass within the endometrial cavity. 2. This is similar to findings on recent prior studies but appears to have enlarged. 3. Curve Cleaner evaluation and management is recommended. Time of 1ST Reevaluation: 02:55 Reevaluation 1ST: Unchanged Patient Education/Counseling: Need For Follow Up Family Education/Counseling: No Family Present SEPSIS Sepsis Screen Date sepsis recognized/suspect: Oct 13, 2025 Time Sepsis recognized/suspect: 0247 Recent Procedure: No On Antibiotic Therapy: No Respiratory Rate >20: No Heart Rate >90: No Temp<36 C (96.8 F) or >38.3 C: No SBP <90 or MAP <65 mmHG: No New Acute Mental Status Change: No Is the patient on CPAP, BIPAP,: No Physician Orders Urinalysis (10/13/25 02:47) Pelvic (10/13/25 02:47) Notify Md If Abnormal Vs (10/13/25 02:51) Saline Lock (10/13/25 02:51) Vital Signs Q1HR (10/13/25 02:51) * It Applications Manager Consultation (10/13/25 05:13) Vital Signs Date Time Temp Pulse Resp B/P (MAP) Pulse Ox O2 Delivery O2 Flow Rate FiO2 10/13/25 07:27 98.6 82 18 160/98 (118) 97 98.6 10/13/25 05:59 98.2 73 16 156/94 (114) 100 98.2 10/13/25 03:03 83 18 158/101 10/13/25 02:30 97.9 83 18 158/101 98 97.9 Laboratory Tests Test 10/13/25 03:06 White Blood Count 8.0 10^3/uL (4.4-10.8) Departure 1 Departure Time of Disposition: 22:59 Impression: Primary Impression: Uterine mass Additional Impression: Intractable pain Disposition: ADMITTED INPATIENT Condition: Stable Comments Patient is stabilized in the emergency department Patient admitted to hospitalist service for further treatment, evaluation and monitoring. Critical Care Note Critical Care Time?: No Stability Stability form required: No Heart Score Heart Score: Heart Score Response (Comments) Value History N/A 0 EKG N/A 0 Age N/A 0 Risk Factors N/A 0 Troponin N/A 0 Total 0 I personally scribed for SCHUYLER ZHANG MD ([email or web address]) on 10/13/25 at 03:01. Electronically submitted by Kapil Dubose ([employer]). I personally scribed for SCHUYLER ZHANG MD ([email or web address]) on 10/13/25 at 05:00. Electronically submitted by Kapil Dubose ([employer]). SCHUYLER ZHANG MD Oct 13, 2025 03:01
[2025-10-13] MEDS: MORPHINE SULFATE INJ 2 MG/ml SYRG IV ONE (03:03)
[2025-10-13] MEDS: ONDANSETRON HCL 4 MG/2 ML VIAL IV ONE (03:04)
[2025-10-13 03:40] LABS: Mean Corpuscular Hemoglobin 20.1 pg (28.0-32.0); Nucleated Red Blood Cells % 0.0 %
[2025-10-13 03:43] LABS: Hematocrit 27.0 % (36.0-46.0); Hemoglobin 8.4 g/dL (12.2-16.2); Mean Corpuscular Volume 65.0 fL (80.0-100.0)
[2025-10-13 03:55] LABS: Chloride 107 mmol/L (98-107); Potassium 3.9 mmol/L (3.5-5.1); Sodium 141 mmol/L (136-145)
[2025-10-13 03:56] LABS: Anion Gap 9 (5-15); Carbon Dioxide 25 mmol/L (20-31)
[2025-10-13 03:57] LABS: Calcium 8.8 mg/dL (8.7-10.4)
[2025-10-13 04:02] LABS: BUN/Creatinine Ratio 13.2 (10.0-20.0)
[2025-10-13 04:04] LABS: Blood Urea Nitrogen 9 mg/dL (9-23); Glucose 126 mg/dL (74-106)
--- NOTE | 2025-10-13 04:38 | DVH ---
MEDICAL RECORDS NUMBER: [id number] PROCEDURE: US PELVIC Date: 10/13/2025 04:09 AM HISTORY: Pelvic pain, L ovarian cyst COMPARISONS: US PELVIC on DOS: 08/26/25, US PELVIC on DOS: 08/13/25 TECHNIQUE:Transabdominal scanning is utilized. FINDINGS: Uterus: The uterus measures 11 cm by 11 cm by 9 cm. The endometrial cavity is distended with a large cystic appearing mass measuring 9 cm x 6 cm x 6 cm. This is similar to findings on recent prior studies but appears to have enlarged. Some echogenic debris is suspected within the fluid.. Right Ovary: The right ovary appears unremarkable. Arterial and venous vascular color and waveforms are with Doppler imaging. Left Ovary: The left ovary appears unremarkable.Arterial and venous vascular color and waveforms are with Doppler imaging. Adnexa: No adnexal masses are seen. Small amount of free fluid is seen in the posterior cul-de-sac. IMPRESSION: 1. Large cystic mass within the endometrial cavity. 2. This is similar to findings on recent prior studies but appears to have enlarged. 3. Marketing Consultant evaluation and management is recommended.
[2025-10-13 05:19] LABS: Anisocytosis Moderate
[2025-10-13 05:20] LABS: Ovalocytes FEW
[2025-10-13 07:29] VITALS: PULSE 84; RESP 18; O2SAT 97
[2025-10-13] MEDS ORDERED: ACETAMINOPHEN 325 MG TAB PO PRN (07:30)
[2025-10-13] MEDS ORDERED: HYDROcodone-ACET 5/325MG TAB PO PRN (07:30)
[2025-10-13] MEDS ORDERED: DOCUSATE SOD 100 MG CAP PO PRN (07:30)
[2025-10-13] MEDS: SODIUM CHLORIDE 0.9% 1,000 ML IV ONE ×2 (07:35→08:45)
[2025-10-13] MEDS: KETOROLAC TROMETH 30 MG/ML 1ML VIAL IV ONE (07:35)
[2025-10-13] MEDS: HYDROmorphone HCL 2 MG/ML VL/or syr IV ONE (07:36)
--- NOTE | 2025-10-13 07:39 | DVHHP2 ---
History of Present Illness Reason for Visit: Abdominal pain History of Present Illness Yolis Anderson is a 45-year-old female with past medical history of anemia, who came to the hospital for abdominal pain. Patient has been experiencing abdominal pain for about 2 months. She was seen here in August and July for similar complaints. Patient was also seen here in July for anemia and received blood transfusion. Patient was previously told she has a uterine cysts, and she needs to follow up with GASOLINE SERVICE ATTENDANT. She was seen by Dr. Barclay and he sent her for further testing that she has not been able to complete yet due to scheduling difficulties. She came to the ER today due to the pain becoming unbearable. Heme/Onc: Anemia NOS Past Surgical History: (x 1) Smoke: No ALCOHOL: none Drugs: None Lives: with Family Domestic Violence: Neg Review of Systems Constitutional: No: Fever, Chills, Sweats, Weakness, Malaise, Other Eyes: No: Pain, Vision change, Conjunctivae inflammation, Eyelid inflammation, Other, Redness ENT: No: Ear pain, Ear discharge, Nose pain, Nose discharge, Nose congestion, Mouth pain, Mouth swelling, Throat pain, Throat swelling, Other Respiratory: No: Cough, Dry, Shortness of breath, SOB with excertion, Wheezing, Hemoptysis, Pleuritic Pain, Sputum, Wheezing, Other Cardiovascular: No: Chest Pain, Palpitations, Orthopnea, Paroxysmal Noc. Dyspnea, Edema, Lt Headedness, Other Gastrointestinal: Abdominal Pain (LLQ ); No: Nausea, Vomiting, Diarrhea, Constipation, Melena, Hematochezia, Other Genitourinary: No Dysuria, No Frequency, No Incontinence, No Hematuria, No Retention, No Other Musculoskeletal: back pain (lower back pain); No: other, neck pain, shoulder pain, arm pain, hand pain, leg pain, foot pain Skin: No: Rash, Lesions, Jaundice, Bruising, Other Neurological: No: Weakness, Numbness, Incoordination, Change in speech, Confusion, Seizures, Other Allergies: Coded Allergies: NO KNOWN ALLERGIES (Unverified , 08/13/25) Exam Vital Signs Vital Signs Date Time Temp Pulse Resp B/P (MAP) Pulse Ox O2 Delivery O2 Flow Rate FiO2 10/13/25 07:29 84 18 97 Room Air* 0 21 10/13/25 07:27 98.6 160/98 (118) 98.6 General Appearance: Alert, Oriented X3, Cooperative, moderate distress HEENT: Atraumatic, PERRLA, Mucous membr. moist/pink Respiratory: Clear to auscultation, Normal air movement Cardiovascular: Regular rate, Normal S1, Normal S2, No murmurs Abdominal: Normal bowel sounds, Soft, Other (LLQ tenderness) Extremities: No clubbing, No cyanosis, No edema, Normal pulses, No tenderness/swelling Skin: No rashes, No breakdown, No significant lesion Neuro: Normal gait, Normal speech, Strength at 5/5 X4 ext Psych/Mental Status: Mental status NL, Mood NL Labs/Xrays Labs Test 10/13/25 03:06 Range/Units White Blood Count 8.0 4.4-10.8 10^3/uL Red Blood Count 4.15 4.0-5.20 10^6/uL Hemoglobin 8.4 L 12.2-16.2 g/dL Hematocrit 27.0 L 36.0-46.0 % Mean Corpuscular Volume 65.0 L 80.0-100.0 fL Mean Corpuscular Hemoglobin 20.1 L 28.0-32.0 pg Mean Corpuscular Hemoglobin Concent 31.0 L 32.0-36.0 g/dL Red Cell Distribution Width 26.0 H 11.8-14.3 % Platelet Count 472 H 140-450 10^3/uL Mean Platelet Volume 8.4 6.9-10.8 fL Neutrophils (%) (Auto) 75.3 37.0-80.0 % Lymphocytes (%) (Auto) 16.4 10.0-50.0 % Monocytes (%) (Auto) 6.9 0.0-12.0 % Eosinophils (%) (Auto) 1.0 0.0-7.0 % Basophils (%) (Auto) 0.4 0.0-2.0 % Neutrophils # (Auto) 6.0 1.6-8.6 10 ^3/uL Lymphocytes # (Auto) 1.3 0.4-5.4 10 ^3/uL Monocytes # (Auto) 0.6 0-1.3 10 ^3/uL Eosinophils # (Auto) 0.1 0-0.8 10 ^3/uL Basophils # (Auto) 0 0-0.2 10 ^3/uL Nucleated Red Blood Cells 0.0 % Platelet Estimate Increased Hypochromasia (manual) Marked Anisocytosis (manual) Moderate Microcytosis Marked Ovalocytes Few Sodium Level 141 136-145 mmol/L Potassium Level 3.9 3.5-5.1 mmol/L Chloride Level 107 98-107 mmol/L Carbon Dioxide Level 25 20-31 mmol/L Anion Gap 9 5-15 Blood Urea Nitrogen 9 9-23 mg/dL Creatinine 0.68 0.550-1.02 mg/dL Glomerular Filtration Rate Calc 111 >90 mL/min BUN/Creatinine Ratio 13.2 10.0-20.0 Serum Glucose 126 H 74-106 mg/dL Calcium Level 8.8 8.7-10.4 mg/dL PROCEDURE: US PELVIC FINDINGS: Uterus: The uterus measures 11 cm by 11 cm by 9 cm. The endometrial cavity is distended with a large cystic appearing mass measuring 9 cm x 6 cm x 6 cm. This is similar to findings on recent prior studies but appears to have enlarged. Some echogenic debris is suspected within the fluid.. Right Ovary: The right ovary appears unremarkable. Arterial and venous vascular color and waveforms are with Doppler imaging. Left Ovary: The left ovary appears unremarkable.Arterial and venous vascular color and waveforms are with Doppler imaging. Adnexa: No adnexal masses are seen. Small amount of free fluid is seen in the posterior cul-de-sac. IMPRESSION: 1. Large cystic mass within the endometrial cavity. 2. This is similar to findings on recent prior studies but appears to have enlarged. 3. Well Logging Captain Mud Analysis evaluation and management is recommended. SEPSIS Sepsis Screen Date sepsis recognized/suspect: Oct 13, 2025 Time Sepsis recognized/suspect: 0731 Recent Procedure: No On Antibiotic Therapy: No Respiratory Rate >20: No Heart Rate >90: No Temp<36 C (96.8 F) or >38.3 C: No SBP <90 or MAP <65 mmHG: No New Acute Mental Status Change: No Is the patient on CPAP, BIPAP,: No Physician Orders Urinalysis (10/13/25 02:47) Pelvic (10/13/25 02:47) Notify Md If Abnormal Vs (10/13/25 02:51) Saline Lock (10/13/25 02:51) Vital Signs Q1HR (10/13/25 02:51) * Mastic Worker Consultation (10/13/25 05:13) Admit (10/13/25 07:27) Code Status (10/13/25 07:27) Hydrocodone-Acet 5/325mg Tab ([place] 32 (10/13/25 07:30) Ondansetron Hcl (Zofran) (10/13/25 07:30) Docusate Sodium Capsule (Colace Capsule) (10/13/25 07:30) Complete Blood Count (10/14/25 04:00) Comprehensive Metabolic Panel (10/14/25 04:00) Npo (Nothing By Mouth) Diet (10/13/25 Breakfast) Condition: Serious (10/13/25 07:27) Acetaminophen Tablet (Tylenol Tablet) (10/13/25 07:30) Morphine Sulfate Injection (10/13/25 07:30) NS (10/13/25 07:30) Vital Signs Date Time Temp Pulse Resp B/P (MAP) Pulse Ox O2 Delivery O2 Flow Rate FiO2 10/13/25 07:29 84 18 97 Room Air* 0 21 10/13/25 07:27 98.6 82 18 160/98 (118) 97 98.6 10/13/25 05:59 98.2 73 16 156/94 (114) 100 98.2 10/13/25 03:03 83 18 158/101 10/13/25 02:30 97.9 83 18 158/101 98 97.9 Laboratory Tests Test 10/13/25 03:06 White Blood Count 8.0 10^3/uL (4.4-10.8) Medications Medications Dose Ordered Sig/Colin Route Start Time Stop Time Status Last Admin Dose Admin Morphine Sulfate 2 mg ONCE ONCE IV 10/13/25 03:00 10/13/25 03:02 DC 10/13/25 03:03 2 MG Ondansetron HCl 4 mg ONCE ONCE IV 10/13/25 03:00 10/13/25 03:02 DC 10/13/25 03:04 4 MG Assessment/Plan Assessment/Plan Assessment: Endometrial mass, Anemia, Intractable abdominal pain, Plan: Admit to Med-Surg, GASOLINE SERVICE ATTENDANT consult, NPO, until GASOLINE SERVICE ATTENDANT sees her, IV hydration, Manage/Monitor H&H closely, Pain management, Home medications reconciled, Plan discussed with: Patient, Spouse My Orders Orders - SCHWING,NATHAN R MENTAL HEALTH SOCIAL WORKER Procedure Category Date Status Time Admit ADMIT 10/13/25 Transmitted 07:27 Code Status CODE 10/13/25 Transmitted 07:27 Hydrocodone-Acet PHA 10/13/25 Transmitted 5/325mg Tab ([place] 07:30 Ondansetron Hcl PHA 10/13/25 Transmitted (Zofran) 07:30 Docusate Sodium PHA 10/13/25 Transmitted Capsule (Colace 07:30 Complete Blood Count LAB 10/14/25 Verified 04:00 Comprehensive LAB 10/14/25 Verified Metabolic Panel 04:00 Npo (Nothing By DIET 10/13/25 Transmitted Mouth) Diet Breakfast Condition: Serious KATHY 10/13/25 Transmitted 07:27 Acetaminophen Tablet PHA 10/13/25 Transmitted (Tylenol Tablet) 07:30 Morphine Sulfate PHA 10/13/25 Transmitted Injection 07:30 NS PHA 10/13/25 Transmitted 07:30 Date of Service: Oct 13, 2025 Billing Provider: NATHAN HUFFMAN Common Visit Codes: [id number] INP/OBS CARE (MOD) NATHAN HUFFMAN Oct 13, 2025 07:39
[2025-10-13 09:00] VITALS: BP 142/94; PULSE 70; RESP 18; TEMP 98.2; O2SAT 98
[2025-10-13] MEDS: FERROUS SULFATE 325mg EC TAB PO SCH (10:23)
[2025-10-13] MEDS: DOCUSATE SOD 100 MG CAP PO SCH (10:23)
[2025-10-13] MEDS ORDERED: hydrALAZINE HCL 20 MG/ML VL IV PRN (10:30)
[2025-10-13] MEDS: ONDANSETRON HCL 4 MG/2 ML VIAL IV PRN (11:40)
[2025-10-13] MEDS: MORPHINE SULFATE INJ 2 MG/ml SYRG IV PRN (11:41)
[2025-10-13 13:00] VITALS: BP 146/88; PULSE 81; RESP 20; TEMP 98.1; O2SAT 100
[2025-10-13 17:30] VITALS: BP 142/84; PULSE 96; RESP 20; TEMP 98; O2SAT 95
[2025-10-13 21:00] VITALS: BP 115/63; PULSE 83; RESP 19; TEMP 98.4; O2SAT 96
[2025-10-14 00:17] LABS: Urine Protein, UAD Negative (Negative)
[2025-10-14 01:00] VITALS: BP 132/76; PULSE 78; RESP 20; TEMP 98.2; O2SAT 95
[2025-10-14 04:07] LABS: Nucleated Red Blood Cells % 0.0 %
[2025-10-14 04:09] LABS: Hematocrit 25.2 % (36.0-46.0); Hemoglobin 7.9 g/dL (12.2-16.2); Mean Corpuscular Hemoglobin 20.6 pg (28.0-32.0); Mean Corpuscular Volume 65.5 fL (80.0-100.0)
[2025-10-14 04:23] LABS: Alanine Aminotransferase 29 U/L (7-40); Albumin 4.0 g/dL (3.2-4.8); Anion Gap 10 (5-15); BUN/Creatinine Ratio 9.5 (10.0-20.0); Bilirubin, Total 0.5 mg/dL (0.2-1.0); Carbon Dioxide 27 mmol/L (20-31); Chloride 103 mmol/L (98-107); Glucose 98 mg/dL (74-106); Sodium 140 mmol/L (136-145); Total Protein 7.6 g/dL (5.7-8.2)
[2025-10-14 04:30] LABS: Alkaline Phosphatase 133 U/L (46-116); Blood Urea Nitrogen 6 mg/dL (9-23); Calcium 8.6 mg/dL (8.7-10.4); Potassium 3.4 mmol/L (3.5-5.1)
[2025-10-14 05:00] VITALS: BP 121/64; PULSE 84; RESP 19; TEMP 98.4; O2SAT 96
[2025-10-14 05:16] LABS: Ovalocytes FEW
[2025-10-14 05:17] LABS: Anisocytosis Moderate
[2025-10-14 09:00] VITALS: BP 134/74; PULSE 68; RESP 15; TEMP 98.4; O2SAT 96
[2025-10-14 12:42] VITALS: BP 152/87; PULSE 75; RESP 15; TEMP 97.7; O2SAT 100
--- NOTE | 2025-10-14 12:59 | DVHPN2 ---
Subjective Patient continues to have abdominal pain Reviewed: Care Plan, H&P, Labs, Medications Changes from previous H/P or p: No Changes General: Per HPI Eyes: No Pain, No Vision change, No Conjunctivae inflammation, No Eyelid inflammation, No Other, No Redness ENT: No Ear pain, No Ear discharge, No Nose pain, No Nose discharge, No Nose congestion, No Mouth pain, No Mouth swelling, No Throat pain, No Throat swelling, No Other Cardiovascular: No Chest Pain, No Palpitations, No Orthopnea, No Paroxysmal Noc. Dyspnea, No Edema, No Lt Headedness, No Other Respiratory: No Cough, No Dry, No Shortness of breath, No SOB with excertion, No Wheezing, No Hemoptysis, No Pleuritic Pain, No Sputum, No Other Gastrointestinal: No Nausea, No Vomiting; Abdominal Pain (LLQ ); No Diarrhea, No Constipation, No Melena, No Hematochezia, No Other Genitourinary: No Dysuria, No Frequency, No Incontinence, No Hematuria, No Retention, No Other Musculoskeletal: No other, No neck pain, No shoulder pain, No arm pain; back pain (lower back pain); No hand pain, No leg pain, No foot pain Skin: No Rash, No Lesions, No Jaundice, No Bruising, No Other Objective Vitals Vital Signs Date Time Temp Pulse Resp B/P (MAP) Pulse Ox O2 Delivery O2 Flow Rate FiO2 10/14/25 12:42 97.7 75 15 152/87 (108) 100 97.7 10/14/25 08:00 Room Air* 0 21 Intake/Output Intake and Output 10/14/25 07:00 Intake Total 0 ml Balance 0 ml Intake Oral 0 ml # Voids 4 General Appearance: Alert, Oriented X3, Cooperative, mild distress HEENT: Atraumatic, PERRLA Lungs: Clear to auscultation, Normal air movement Cardiovascular: Normal S1, Normal S2 Abdomen: Normal bowel sounds, Soft, No hepatospenomegaly, No masses, Other (Suprapubic pain left lower quadrant pain) Genitourinary: No Apparent Abnormalities Musculoskeletal: Normal sensory function, Normal motor function Neuro: Normal gait, Normal speech Skin: Dry, Intact Psych/Mental Status: Mental status NL, Mood NL Medications Current Medications Medications Dose Ordered Sig/Colin Route Start Time Stop Time Status Last Admin Dose Admin Acetaminophen/ Hydrocodone Bitart 1 tab Q4HP PRN PO 10/13/25 07:30 Ondansetron HCl 4 mg Q4HP PRN IV 10/13/25 07:30 10/13/25 11:40 4 MG Acetaminophen 650 mg Q6HP PRN PO 10/13/25 07:30 Morphine Sulfate 2 mg Q4HPRN PRN IV 10/13/25 07:30 10/14/25 12:28 2 MG Docusate Sodium 100 mg BID PO 10/13/25 10:00 10/13/25 10:23 100 MG Ferrous Sulfate 325 mg BID PO 10/13/25 10:00 10/13/25 10:23 325 MG Hydralazine HCl 10 mg Q6HP PRN IV 10/13/25 10:30 Laboratory Results Laboratory Tests 10/14/25 03:29 Chemistry Test 10/14/25 03:29 Albumin 4.0 g/dL (3.2-4.8) Calcium Level 8.6 mg/dL (8.7-10.4) L Total Protein 7.6 g/dL (5.7-8.2) LFT Test 10/14/25 03:29 Alanine Aminotransferase (ALT) 29 U/L (7-40) Alkaline Phosphatase 133 U/L (46-116) H Aspartate Amino Transferase (AST) 28 U/L (13-40) Total Bilirubin 0.5 mg/dL (0.2-1.0) Urinalysis Test 10/13/25 23:44 Urine Color Light-yellow (Yellow) Urine Clarity Clear (Clear) Urine pH 6.0 (5.0-9.0) Urine Specific [place] 1.009 (1.001-1.035) Urine Protein Negative (Negative) Urine Ketones Negative (Negative) Urine Blood Negative /uL (Negative) Urine Nitrite Negative (Negative) Urine Bilirubin Negative (Negative) Urine Urobilinogen Normal mg/dL (Negative) Urine Leukocyte Esterase Negative /uL (Negative) Urine RBC None seen /hpf (0 - 4) Urine Microscopic WBC 2 /HPF (0-5) Urine Squamous Epithelial Cells Few /hpf (<5) Urine Bacteria None seen /hpf (None Seen) Urine Glucose Normal mg/dL (Normal) Labs and/or images reviewed: Labs reviewed by me, Image(s) reviewed by me Assessment/Plan Assessment/Plan Impression: -abdominal pain -uterine mass -iron-deficiency anemia -obesity -primary hypertension Plan: -OBGYN consultation, pending -start diet -pain management: Add Percocet -check CA 125, iron panel -further course of care per OBGYN recommendations Total time spent with patient discussing and formulating plan of care: 35 minutes. This medical document was created using an electronic medical record system with [employer] dictation system. Although this document has been carefully reviewed, there may still be some phonetic and typographical errors. These areas are purely typographical due to imperfections of the software programs, and do not reflect any compromise in the patient's medical care. Plan discussed with: Patient, Other (RN) My Orders Orders - MONY RANDLE NP Procedure Category Date Status Time * [facility] Facilities Consultation CONS 10/14/25 Transmitted 12:44 Potassium Effervesent PHA 10/14/25 Logged Tab (Klor-Con/Ef) 12:45 Ca 125 (Serial) LAB 10/14/25 Logged 12:44 Iron Panel LAB 10/14/25 Logged 12:44 Regular Diet DIET 10/14/25 Transmitted Lunch Basic Metabolic Panel LAB 10/15/25 Verified 04:00 Hemoglobin & LAB 10/15/25 Verified Hematocrit 04:00 Magnesium LAB 10/15/25 Verified 04:00 Date of Service: Oct 14, 2025 Billing Provider: MONY RANDLE NP Common Visit Codes: [id number] INP/OBS CARE(HIGH) MONY RANDLE NP Oct 14, 2025 12:59
[2025-10-14 13:30] LABS: Iron 22.0 ug/dL (50-170)
[2025-10-14 13:31] LABS: Total Iron Binding Capacity 353.0 ug/dL (250-425)
[2025-10-14] MEDS: POTASSIUM EFFERVESENT TAB 25 MEQ PO ONE (13:44)
[2025-10-14] MEDS: HYDROcodone-ACET 5/325MG TAB PO PRN (15:02)
[2025-10-14 16:30] VITALS: BP 127/72; PULSE 73; RESP 17; TEMP 97.8; O2SAT 98
[2025-10-14 21:00] VITALS: BP 122/83; PULSE 73; RESP 16; TEMP 98.4; O2SAT 97
[2025-10-15] VITALS (8 sets, daily range): BP systolic 119–166; BP diastolic 72–101; PULSE 62–86; RESP 16–19; TEMP 97.7–98.2; O2SAT 94–98
[2025-10-15 06:02] LABS: Chloride 102 mmol/L (98-107); Hematocrit 26.3 % (36.0-46.0); Hemoglobin 8.3 g/dL (12.2-16.2); Potassium 3.8 mmol/L (3.5-5.1); Sodium 140 mmol/L (136-145)
[2025-10-15 06:03] LABS: Anion Gap 10 (5-15); Calcium 8.9 mg/dL (8.7-10.4); Carbon Dioxide 28 mmol/L (20-31)
[2025-10-15 06:08] LABS: Glucose 99 mg/dL (74-106)
[2025-10-15 06:09] LABS: BUN/Creatinine Ratio 13.3 (10.0-20.0); Magnesium 2.1 mg/dL (1.6-2.6)
[2025-10-15 06:20] LABS: Blood Urea Nitrogen 8 mg/dL (9-23)
--- NOTE | 2025-10-15 11:44 | DVHPN2 ---
Subjective Patient continues to have abdominal pain Reviewed: Care Plan, H&P, Labs, Medications Changes from previous H/P or p: No Changes General: Per HPI Eyes: No Pain, No Vision change, No Conjunctivae inflammation, No Eyelid inflammation, No Other, No Redness ENT: No Ear pain, No Ear discharge, No Nose pain, No Nose discharge, No Nose congestion, No Mouth pain, No Mouth swelling, No Throat pain, No Throat swelling, No Other Cardiovascular: No Chest Pain, No Palpitations, No Orthopnea, No Paroxysmal Noc. Dyspnea, No Edema, No Lt Headedness, No Other Respiratory: No Cough, No Dry, No Shortness of breath, No SOB with excertion, No Wheezing, No Hemoptysis, No Pleuritic Pain, No Sputum, No Other Gastrointestinal: No Nausea, No Vomiting; Abdominal Pain (LLQ ); No Diarrhea, No Constipation, No Melena, No Hematochezia, No Other Genitourinary: No Dysuria, No Frequency, No Incontinence, No Hematuria, No Retention, No Other Musculoskeletal: No other, No neck pain, No shoulder pain, No arm pain; back pain (lower back pain); No hand pain, No leg pain, No foot pain Skin: No Rash, No Lesions, No Jaundice, No Bruising, No Other Objective Vitals Vital Signs Date Time Temp Pulse Resp B/P (MAP) Pulse Ox O2 Delivery O2 Flow Rate FiO2 10/15/25 09:06 97.9 62 16 119/75 (90) 98 97.9 10/15/25 08:00 Room Air* 0 N/A Nasal Cannula* Intake/Output Intake and Output 10/15/25 07:00 Intake Total 1000 ml Balance 1000 ml Intake Oral 1000 ml # Voids 10 # Bowel Movements 1 General Appearance: Alert, Oriented X3, Cooperative, mild distress HEENT: Atraumatic, PERRLA Lungs: Clear to auscultation, Normal air movement Cardiovascular: Normal S1, Normal S2 Abdomen: Normal bowel sounds, Soft, No hepatospenomegaly, No masses, Other (Suprapubic pain left lower quadrant pain) Genitourinary: No Apparent Abnormalities Musculoskeletal: Normal sensory function, Normal motor function Neuro: Normal gait, Normal speech Skin: Dry, Intact Psych/Mental Status: Mental status NL, Mood NL Medications Current Medications Medications Dose Ordered Sig/Colin Route Start Time Stop Time Status Last Admin Dose Admin Acetaminophen/ Hydrocodone Bitart 1 tab Q4HP PRN PO 10/13/25 07:30 Cancel Ondansetron HCl 4 mg Q4HP PRN IV 10/13/25 07:30 10/13/25 11:40 4 MG Acetaminophen 650 mg Q6HP PRN PO 10/13/25 07:30 Morphine Sulfate 2 mg Q4HPRN PRN IV 10/13/25 07:30 10/15/25 08:57 2 MG Docusate Sodium 100 mg BID PO 10/13/25 10:00 10/15/25 08:57 100 MG Ferrous Sulfate 325 mg BID PO 10/13/25 10:00 10/15/25 08:57 325 MG Hydralazine HCl 10 mg Q6HP PRN IV 10/13/25 10:30 Acetaminophen/ Hydrocodone Bitart 1 tab Q6HPRN PRN PO 10/14/25 13:00 10/15/25 10:38 1 TAB Laboratory Results Laboratory Tests 10/14/25 03:29 10/15/25 05:20 Chemistry Test 10/15/25 05:20 Calcium Level 8.9 mg/dL (8.7-10.4) Magnesium Level 2.1 mg/dL (1.6-2.6) Urinalysis Test 10/13/25 23:44 Urine Color Light-yellow (Yellow) Urine Clarity Clear (Clear) Urine pH 6.0 (5.0-9.0) Urine Specific [place] 1.009 (1.001-1.035) Urine Protein Negative (Negative) Urine Ketones Negative (Negative) Urine Blood Negative /uL (Negative) Urine Nitrite Negative (Negative) Urine Bilirubin Negative (Negative) Urine Urobilinogen Normal mg/dL (Negative) Urine Leukocyte Esterase Negative /uL (Negative) Urine RBC None seen /hpf (0 - 4) Urine Microscopic WBC 2 /HPF (0-5) Urine Squamous Epithelial Cells Few /hpf (<5) Urine Bacteria None seen /hpf (None Seen) Urine Glucose Normal mg/dL (Normal) Labs and/or images reviewed: Labs reviewed by me, Image(s) reviewed by me Assessment/Plan Assessment/Plan Impression: -abdominal pain -uterine mass -iron-deficiency anemia -obesity -primary hypertension Plan: Events: CA 125 noted to be 171. H and H holding. -OBGYN consultation, pending -start diet -pain management: Add Percocet -pelvic MRI -social service consultation for IEHP referral to Under Presser/ Onc -further course of care per OBGYN recommendations Total time spent with patient discussing and formulating plan of care: 35 minutes. This medical document was created using an electronic medical record system with [employer] dictation system. Although this document has been carefully reviewed, there may still be some phonetic and typographical errors. These areas are purely typographical due to imperfections of the software programs, and do not reflect any compromise in the patient's medical care. Plan discussed with: Patient, Spouse, Other (RN) My Orders Orders - MONY RANDLE NP Procedure Category Date Status Time * Mis Specialist Consultation CONS 10/14/25 Transmitted 12:44 Regular Diet DIET 10/14/25 Transmitted Lunch Hydrocodone-Acet PHA 10/14/25 In Process 5/325mg Tab ([place] 13:00 * City Mail Carrier CONS 10/15/25 Transmitted Consult Pelvis With Contrast MRI 10/15/25 Logged MRI 11:08 Date of Service: Oct 15, 2025 Billing Provider: MONY RANDLE NP Common Visit Codes: [id number] INP/OBS CARE(HIGH) MONY RANDLE NP Oct 15, 2025 11:43
[2025-10-15] MEDS ORDERED: GADOTERATE MEG 10 MMOL/20ml INJ (0.5MMOL/ml) IV ONE (13:22)
--- NOTE | 2025-10-15 15:05 | DVH ---
CLINICAL HISTORY: Uterine Mass. TECHNIQUE: Multi sequence Multi planar MRI images of the pelvis were obtained prior to and after the administration of 15 mL Clariscan contrast. COMPARISON: US PELVIC on DOS: 10/13/25, US PELVIC on DOS: 08/26/25, US PELVIC on DOS: 08/13/25 FINDINGS: Markedly distended endometrial canal of the uterus measuring up to 6.6 x 9.2 x 6.1 cm demonstrating mildly heterogeneous T1 and T2 hyperintense signal on the precontrast images. Difficult to evaluate for enhancement on postcontrast imaging due to the endometrium demonstrating T1 hyperintense signal on both pre and postcontrast images. No precontrast fat saturated T1 sequence was included in the protocol compare with the T1 fat saturated postcontrast images. Distention of the uterus may be due to complex fluid, including hemorrhage. Can not exclude superimposed mass component. Small nabothian cysts are seen in the cervix. There is a small to moderate amount of free fluid in the cul-de-sac. No suspicious adnexal mass. No pelvic lymphadenopathy. No other significant findings are seen. IMPRESSION: 1. Markedly distended endometrial canal of the uterus, appears to be due to complex fluid, possibly hemorrhage or other proteinaceous material. Difficult to evaluate for enhancing solid component given the similar-appearing signal characteristics on pre and postcontrast imaging. Correlate with clinical findings. 2. Small to moderate amount of free fluid in the cul-de-sac, may be physiologic fluid. No T1 hyperintense signal is seen to suggest hemorrhagic component of the free fluid. 3. Additional findings as described above.
--- NOTE | 2025-10-15 16:08 | DVHINCON2 ---
Date of service: Oct 15, 2025 Referring Physician hospitalist Reason for Consultation endometrial mass History of Present Illness 45 y/o ADMITTE FOR ABD PAIN.PT HAS KNOWN HX OF UTERINE MASS WHICH SHE WAS SEEING DR WEST FOR THE LAST 2 MONTHS BUT NOTHING WAS SCHED FOR HER .THE MASS IS GETTING BIGGER AND SHE HAS SOME AUB WITH ANEMIA.HER LAST PAP WAS IN 2024. Past Medical History ANEMIA Past Surgical History CS AND CHOLECYSTECTOMY Family History NA Social History 7 AND ONE CS Patient Family History: Cardiovascular disease 19 CHILD, Onset:Unknown Diabetes mellitus G8 MOTHER, Onset:Unknown G8 FATHER, Onset:Unknown G8 BROTHER, Onset:Unknown G8 BROTHER, Onset:Unknown G8 BROTHER, Onset:Unknown G8 SISTER, Onset:Unknown G8 SISTER, Onset:Unknown FH: anemia G8 MOTHER, Onset:Unknown G8 SISTER, Onset:Unknown Hypercholesterolemia G8 SISTER G8 SISTER Allergies: Coded Allergies: NO KNOWN ALLERGIES (Unverified , 08/13/25) Home Meds Active Scripts Ondansetron HCl (Ondansetron) 4 Mg Tab, 4 MG PO Q6HPRN PRN for 3 Days, #12 TAB Prov:FAITH OLIVARES MD 09/13/25 Hydrocodone-Acetaminophen (Hydrocodone Bitartrate/AC 5-325 mg) 1 Tab Tab, 1 TAB PO Q8HP PRN for 5 Days, #15 TAB Prov:MONY RANDLE NP 08/14/25 Acetaminophen (Acetaminophen) 325 Mg Tab, 325 MG PO TID for 7 Days, #21 TAB 0 Refills Prov:ZULY DELGADILLO NP 08/12/24 Reported Medications Docusate Sodium (Docusate Sodium) 100 Mg Cap, 1 CAP PO BID 08/13/25 Ferrous Sulfate (Ferosul) 325 Mg Tab, 325 MG PO BID 08/13/25 Discontinued Scripts Ferrous Sulfate (FERROUS SULFATE) 325 Mg Tb, 1 TAB PO BID for 30 Days, #60 TAB 3 Refills Prov:MONY RANDLE NP 08/14/25 Current Medications Current Medications Medications (Trade) Dose Ordered Sig/Colin Route PRN Reason Start Time Stop Time Status Last Admin Oxycodone/ Acetaminophen (Percocet 5/ 325MG Tablet) 2 tab Q4HP PRN PO MODERATE PAIN (4-6 PAIN SCALE) 10/15/25 15:00 Review of Systems Constitutional: no fever, chill, weight loss HEENT: no eye pain, no hearing loss, no oral lesion, no scleral icterus Heart: no chest pain, no chest pressure Lung: no cough, no dyspnea with exertion Abdomen: see HPI : no pain with urination, normal appearing urine Musculoskeletal: no joint pain, no muscle pain Neurological: no seizure, no loss of sensation, no weakness in extremities Pysch: no depression, no anxiety Derm: no rash, no jaundice Vital Signs Vital Signs Date Time Temp Pulse Resp B/P (MAP) Pulse Ox O2 Delivery O2 Flow Rate FiO2 10/15/25 14:17 86 18 166/101 10/15/25 12:36 97.9 97 97.9 10/15/25 08:00 Room Air* 0 N/A Nasal Cannula* Physical Exam ALERT AND ORIENTED HEENT: PALE CONJUCTIVAE NECK: NL CARDIAC: RRR PULMONARY: CTA ABDOMEN: SOFT,LOWER ABD TENDERNES PELVIC-EXT GENT WNL,VAG NL,CX NL,UTERUS 10WKS SIZE,ADENXA NT EXT-NO CCE Labs/Diagnostic Data Labs Test 10/15/25 05:20 10/14/25 13:09 10/14/25 03:29 10/13/25 23:44 Range/Units Hemoglobin 8.3 L 12.2-16.2 g/dL Hematocrit 26.3 L 36.0-46.0 % Sodium Level 140 136-145 mmol/L Potassium Level 3.8 3.5-5.1 mmol/L Chloride Level 102 98-107 mmol/L Carbon Dioxide Level 28 20-31 mmol/L Anion Gap 10 5-15 Blood Urea Nitrogen 8 L 9-23 mg/dL Creatinine 0.60 0.550-1.02 mg/dL Glomerular Filtration Rate Calc 114 >90 mL/min BUN/Creatinine Ratio 13.3 10.0-20.0 Serum Glucose 99 74-106 mg/dL Calcium Level 8.9 8.7-10.4 mg/dL Magnesium Level 2.1 1.6-2.6 mg/dL CA 125 Antigen 171.0 H 0.0-38.1 U/mL White Blood Count 10.8 # 4.4-10.8 10^3/uL Red Blood Count 3.85 L 4.0-5.20 10^6/uL Mean Corpuscular Volume 65.5 L 80.0-100.0 fL Mean Corpuscular Hemoglobin 20.6 L 28.0-32.0 pg Mean Corpuscular Hemoglobin Concent 31.4 L 32.0-36.0 g/dL Red Cell Distribution Width 25.9 H 11.8-14.3 % Platelet Count 414 140-450 10^3/uL Mean Platelet Volume 8.3 6.9-10.8 fL Neutrophils (%) (Auto) 78.7 37.0-80.0 % Lymphocytes (%) (Auto) 13.0 10.0-50.0 % Monocytes (%) (Auto) 8.0 0.0-12.0 % Eosinophils (%) (Auto) 0.1 0.0-7.0 % Basophils (%) (Auto) 0.2 0.0-2.0 % Neutrophils # (Auto) 8.5 1.6-8.6 10 ^3/uL Lymphocytes # (Auto) 1.4 0.4-5.4 10 ^3/uL Monocytes # (Auto) 0.9 0-1.3 10 ^3/uL Eosinophils # (Auto) 0 0-0.8 10 ^3/uL Basophils # (Auto) 0 0-0.2 10 ^3/uL Nucleated Red Blood Cells 0.0 % Platelet Estimate Adequate Hypochromasia (manual) Marked Anisocytosis (manual) Moderate Microcytosis Marked Ovalocytes Few Iron Level 22 L 50-170 ug/dL Total Iron Binding Capacity 353 250-425 ug/dL Percent Iron Saturation 6.2 L 15-50 % Total Bilirubin 0.5 0.2-1.0 mg/dL Aspartate Amino Transferase (AST) 28 13-40 U/L Alanine Aminotransferase (ALT) 29 7-40 U/L Alkaline Phosphatase 133 H 46-116 U/L Total Protein 7.6 5.7-8.2 g/dL Albumin 4.0 3.2-4.8 g/dL Urine Color Light-yellow Yellow Urine Clarity Clear Clear Urine pH 6.0 5.0-9.0 Urine Specific [place] 1.009 1.001-1.035 Urine Protein Negative Negative Urine Ketones Negative Negative Urine Blood Negative Negative /uL Urine Nitrite Negative Negative Urine Bilirubin Negative Negative Urine Urobilinogen Normal Negative mg/dL Urine Leukocyte Esterase Negative Negative /uL Urine RBC None seen 0 - 4 /hpf Urine Microscopic WBC 2 0-5 /HPF Urine Squamous Epithelial Cells Few <5 /hpf Urine Bacteria None seen None Seen /hpf Urine Glucose Normal Normal mg/dL Primary Diagnosis UTERINE MASS AUB WITH ANEMIA ABDOMINAL PAIN Plan RECOMMEND [facility] JANETH PT WAS ADVISED TO FU WITH [facility] OR [facility] JANETH THANK YOU FOR THIS CONSULTATION WILL SIGN OFF Plan discussed with: Patient Visit Coding OBGYN Date of Service: Oct 15, 2025 Billing Provider: RADHA GRANGER DO LUMBER PRESS OPERATOR Common Visit Codes: [id number] OBS CARE (HIGH) LUMBER PRESS OPERATOR Consultation Codes: [id number] CONSULT <110MIN RADHA GRANGER DO Oct 15, 2025 16:08
[2025-10-15] MEDS: OXYCODONE W/ ACETAMINOPHEN 5/325MG TABLET PO PRN (18:45)
[2025-10-16 01:00] VITALS: BP 118/67; PULSE 61; RESP 16; TEMP 97.7; O2SAT 97
[2025-10-16 05:00] VITALS: BP 129/80; PULSE 62; RESP 16; TEMP 98.1; O2SAT 96
[2025-10-16 08:00] VITALS: PULSE 69; RESP 19; O2SAT 98
[2025-10-16 09:00] VITALS: BP 144/89; PULSE 69; RESP 19; TEMP 99.2; O2SAT 98
[2025-10-16] MEDS ORDERED: PERCOT PO (10:33)
[2025-10-16] MEDS ORDERED: DOCU-94 PO (10:33)
--- NOTE | 2025-10-16 11:44 | DVHDS2 ---
Discharge Summary Date of Admission Oct 13, 2025 at 07:27 Date of Discharge: Oct 16, 2025 Admitting Diagnosis Abdominal pain with uterine mass Labs/Diagnostic Data: Laboratory Results Test 10/15/25 05:20 10/14/25 13:09 10/14/25 03:29 10/13/25 23:44 Hemoglobin 8.3 g/dL (12.2-16.2) Hematocrit 26.3 % (36.0-46.0) Sodium Level 140 mmol/L (136-145) Potassium Level 3.8 mmol/L (3.5-5.1) Chloride Level 102 mmol/L (98-107) Carbon Dioxide Level 28 mmol/L (20-31) Anion Gap 10 (5-15) Blood Urea Nitrogen 8 mg/dL (9-23) Creatinine 0.60 mg/dL (0.550-1.02) Glomerular Filtration Rate Calc 114 mL/min (>90) BUN/Creatinine Ratio 13.3 (10.0-20.0) Serum Glucose 99 mg/dL (74-106) Calcium Level 8.9 mg/dL (8.7-10.4) Magnesium Level 2.1 mg/dL (1.6-2.6) CA 125 Antigen 171.0 U/mL (0.0-38.1) White Blood Count 10.8 10^3/uL (4.4-10.8) Red Blood Count 3.85 10^6/uL (4.0-5.20) Mean Corpuscular Volume 65.5 fL (80.0-100.0) Mean Corpuscular Hemoglobin 20.6 pg (28.0-32.0) Mean Corpuscular Hemoglobin Concent 31.4 g/dL (32.0-36.0) Red Cell Distribution Width 25.9 % (11.8-14.3) Platelet Count 414 10^3/uL (140-450) Mean Platelet Volume 8.3 fL (6.9-10.8) Neutrophils (%) (Auto) 78.7 % (37.0-80.0) Lymphocytes (%) (Auto) 13.0 % (10.0-50.0) Monocytes (%) (Auto) 8.0 % (0.0-12.0) Eosinophils (%) (Auto) 0.1 % (0.0-7.0) Basophils (%) (Auto) 0.2 % (0.0-2.0) Neutrophils # (Auto) 8.5 10 ^3/uL (1.6-8.6) Lymphocytes # (Auto) 1.4 10 ^3/uL (0.4-5.4) Monocytes # (Auto) 0.9 10 ^3/uL (0-1.3) Eosinophils # (Auto) 0 10 ^3/uL (0-0.8) Basophils # (Auto) 0 10 ^3/uL (0-0.2) Nucleated Red Blood Cells 0.0 % Platelet Estimate Adequate Hypochromasia (manual) Marked Anisocytosis (manual) Moderate Microcytosis Marked Ovalocytes Few Iron Level 22 ug/dL (50-170) Total Iron Binding Capacity 353 ug/dL (250-425) Percent Iron Saturation 6.2 % (15-50) Total Bilirubin 0.5 mg/dL (0.2-1.0) Aspartate Amino Transferase (AST) 28 U/L (13-40) Alanine Aminotransferase (ALT) 29 U/L (7-40) Alkaline Phosphatase 133 U/L (46-116) Total Protein 7.6 g/dL (5.7-8.2) Albumin 4.0 g/dL (3.2-4.8) Urine Color Light-yellow (Yellow) Urine Clarity Clear (Clear) Urine pH 6.0 (5.0-9.0) Urine Specific [place] 1.009 (1.001-1.035) Urine Protein Negative (Negative) Urine Ketones Negative (Negative) Urine Blood Negative /uL (Negative) Urine Nitrite Negative (Negative) Urine Bilirubin Negative (Negative) Urine Urobilinogen Normal mg/dL (Negative) Urine Leukocyte Esterase Negative /uL (Negative) Urine RBC None seen /hpf (0 - 4) Urine Microscopic WBC 2 /HPF (0-5) Urine Squamous Epithelial Cells Few /hpf (<5) Urine Bacteria None seen /hpf (None Seen) Urine Glucose Normal mg/dL (Normal) Other Laboratory Tests 10/15/25 05:20 10/14/25 03:29 Brief Hx & Hospital Course: History of Present Illness Yolis Anderson is a 45-year-old female with past medical history of anemia, who came to the hospital for abdominal pain. Patient has been experiencing abdominal pain for about 2 months. She was seen here in August and July for similar complaints. Patient was also seen here in July for anemia and received blood transfusion. Patient was previously told she has a uterine cysts, and she needs to follow up with [facility]. She was seen by Dr. Barclay and he sent her for further testing that she has not been able to complete yet due to scheduling difficulties. She came to the ER today due to the pain becoming unbearable. Course of hospitalization: Patient had persistent abdominal pain with stable H&H while in the hospital and scant vaginal bleeding. CA 125 was found to be elevated at 171. Patient had MRI of the pelvis which revealed large uterine mass. OBGYN consultation was obtained to here. Given the patient needs higher level of care for Gynecological Oncology, and difficulties with transferring patient's from hospital hospital, emergent referral was obtained for the patient to follow up as an outpatient to [facility]. Authorization number and phone number [facility] was given to the patient by [employer]ndana, and case management. Patient's pain has improved with Percocet 03/3252 tablets q.6 hours as needed. Patient will be discharged home as instructed to follow up with [facility] rita once being discharged. Patient states that they will call with number prior to being discharged home today. She will be continued on Percocet as previously mentioned as well as stool softener. With the patient and family who were bedside are agreeable with discharge plan. All questions answered. Physical examination General: Alert and Oriented x3. No acute distress. Well-nourished. Obese Eyes: EOMI. Anicteric. HENT: Moist mucous membranes. Lungs: Clear to auscultation bilaterally. No accessory muscle use. Cardiovascular: Regular rate and rhythm. No murmur. No JVD. Abdomen: Soft, non-tender and non-distended. No palpable masses. Extremities: No edema. Non-tender. Skin: No rashes or lesions. Warm. Neurologic: No focal neurological deficits. CN II-XII grossly intact, but not individually tested. Psychiatric: Cooperative. Appropriate mood and affect. Total time spent with patient discussing and formulating plan of care: 35 minutes. This medical document was created using an electronic medical record system with [employer] system. Although this document has been carefully reviewed, there may still be some phonetic and typographical errors. These areas are purely typographical due to imperfections of the software programs, and do not reflect any compromise in the patient's medical care. Consults/Reason for consult OBGYN: Uterine mass Condition at Discharge: Guarded Final Diagnosis/Problems List Uterine Mass -abdominal pain -uterine mass -iron-deficiency anemia -obesity -primary hypertension Discharge Disposition: Home Discharge Instruct/Medications Diet: Regular Activity: No Restrictions, As Tolerated Follow Up/Referral: Cargo Operations Agent/Onc at [facility] as established with Civil Engineering Intern Medications: Percocet 5/325 ii tabs q6hrs for moderate to severe pain Colace 100mg po daily Continue Iron supplementation Scheduled Acetaminophen (Acetaminophen), 325 MG PO TID Docusate Sodium (Docusate Sodium), 1 CAP PO BID, (Reported) Docusate Sodium (Colace), 1 CAP PO BID Ferrous Sulfate (Ferosul), 325 MG PO BID, (Reported) Oxycodone W/ Acetaminophen (Percocet 5/325MG), 1 TAB PO QID Scheduled PRN Hydrocodone-Acetaminophen (Hydrocodone Bitartrate/AC 5-325 mg), 1 TAB PO Q8HP PRN Ondansetron HCl (Ondansetron), 4 MG PO Q6HPRN PRN Discontinued Medications Ferrous Sulfate (Ferrous Sulfate), 1 TAB PO BID 36 Discharge Statement: "Patient was advised to return to the ER or call 911 if any headaches, dizziness, shortness of breath, chest pain, abdominal pain, bleeding, fevers, or worsening of medical condition. Patient was counseled about treatment plan, medications, possible side effects, patientverbalized understanding. All questions were answered to the best of my ability. This discharge took greater then 30 minutes in planning, reviewing documentation, counseling the patient, and discussing with other team members." ASSESSMENT ASSESSMENT Assessment Uterine Mass Date of Service: Oct 16, 2025 Billing Provider: MONY RANDLE NP Common Visit Codes: 75011-ICO/OBS DISCH DAY >30min MONY RANDLE NP Oct 16, 2025 11:44
[2025-10-16 12:50] VITALS: BP 138/86; PULSE 65; RESP 19; TEMP 98.9; O2SAT 98
[2025-10-16 13:02] VITALS: BP 138/86; PULSE 65; RESP 19; TEMP 37.3; O2SAT 98
== END 2025-10-16 16:10 | disposition home or self-care (01) | DRG 532 ==
LOC: ER 02:21 → EDBD 02:21 → OVERFLOW 07:27 → EAST 10-14 18:08
PROVIDERS: ADMIT Nurse Practitioner Acute Care; ATTEND Nurse Practitioner Acute Care
DX: N85.9 Noninflammatory disorder of uterus, unspecified (principal); D50.9 Iron deficiency anemia, unspecified; E66.9 Obesity, unspecified; I10 Essential (primary) hypertension; N93.9 Abnormal uterine and vaginal bleeding, unspecified; Z90.49 Acquired absence of other specified parts of digestive tract; Z82.49 Family history of ischemic heart disease and other diseases of the circulatory system; Z83.3 Family history of diabetes mellitus; Z83.42 Family history of familial hypercholesterolemia; Z83.2 Family history of diseases of the blood and blood-forming organs and certain disorders involving the immune mechanism; Z68.31 Body mass index [BMI] 31.0-31.9, adult
CPT/HCPCS: 36415; 72195; 76856; 80048; 80053; 81001; 83540; 83550; 83735; 85014; 85018; 85025; 86304; 96361; 96374; 96375; G0378; J1885; J2405

== ENCOUNTER 2025-10-17 08:41 | Inpatient (IN) | payer MEDICAID ==
[~2025-10-17] VITALS: Ht 167.6 cm; Wt 86.2 kg
[~2025-10-17 08:41] MED LIST changes: +DOCU-94 PO; -FER325T PO; +PERCOT PO
--- NOTE | 2025-10-17 09:27 | ED.PDOC ---
ENERGY CONSERVATION REPRESENTATIVE HPI Comments Patient is a 45-year-old A1 female with past medical history of uterine mass, gestational diabetes, gestational hypertension, who comes in due to acute intractable abdominal pain. According to the patient, she has been having abdominal pain for over 2 months, however, it worsened overnight which is what prompted this visit to the ER. Of note, patient was discharged from the [facility] yesterday with recommendations to follow up with Gynecologic Oncology at [facility] with him she has an appointment on 10/21/2025. Patient describes the abdominal pain as intermittent sharp, stabbing, 10/10 in intensity, without any exacerbating factors and relieved with warm compresses, localizes the pain to generalized lower abdomen as well as left lower quadrant with radiation to bilateral flank. Pain is associated with nausea, dizziness and 2 episodes of vomiting that did not contain any blood. Pelvic MRI was completed during the last visit which showed markedly distended endometrial canal likely due to complex fluid which may be hemorrhage versus proteinaceous material. Chief Complaint: Nausea/Vomiting Time Seen by MD: 09:15 Allergies: Coded Allergies: NO KNOWN ALLERGIES (Unverified , 08/13/25) Home Meds Active Scripts Docusate Sodium (Colace) 100 Mg Cap, 1 CAP PO BID for 30 Days, #30 CAP Prov:MONY RANDLE NP 10/16/25 Oxycodone W/ Acetaminophen (Percocet 5/325MG) 1 Tab Tb, 1 TAB PO QID for 7 Days, #28 TAB Prov:MONY RANDLE NP 10/16/25 Ondansetron HCl (Ondansetron) 4 Mg Tab, 4 MG PO Q6HPRN PRN for 3 Days, #12 TAB Prov:FAITH OLIVARES MD 09/13/25 Hydrocodone-Acetaminophen (Hydrocodone Bitartrate/AC 5-325 mg) 1 Tab Tab, 1 TAB PO Q8HP PRN for 5 Days, #15 TAB Prov:MONY RANDLE NP 08/14/25 Acetaminophen (Acetaminophen) 325 Mg Tab, 325 MG PO TID for 7 Days, #21 TAB 0 Refills Prov:ZULY DELGADILLO NP 08/12/24 Reported Medications Docusate Sodium (Docusate Sodium) 100 Mg Cap, 1 CAP PO BID 08/13/25 Ferrous Sulfate (Ferosul) 325 Mg Tab, 325 MG PO BID 08/13/25 Discontinued Scripts Ferrous Sulfate (FERROUS SULFATE) 325 Mg Tb, 1 TAB PO BID for 30 Days, #60 TAB 3 Refills Prov:MONY RANDLE NP 08/14/25 Information Source: Patient Mode of Arrival: EMS Timing: Months Severity: Moderate Onset Of Mass/Bleeding: Unknown Associated Signs and Symptoms: Abdominal Pain, Chills Past Medical History PAST MEDICAL HISTORY: Anemia, HTN Past Medical History (Contd): uterine mass, gestational diabetes, gestational hypertension, 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 Surgical History: Cholecystectomy, BRANCH SERVICE LEADER History: Denies all BRANCH SERVICE LEADER Hx Family History Family History: Reviewed,noncontributory to illness Social History Smoker: Non-Smoker Alcohol: Denies ETOH Use Drugs: Denies Drug Use Lives In: Home Constitutional: reports: chills; denies: diaphoresis, fatigue, fever, malaise, sweats, weakness, others EENTM: denies: blurred vision, double vision, ear bleeding, ear discharge, ear drainage, ear pain, ear ringing, eye pain, eye redness, hearing loss, mouth pain, mouth swelling, nasal discharge, nose bleeding, nose congestion, nose pain, photophobia, tearing, throat pain, throat swelling, voice changes, others Respiratory: denies: cough, hemoptysis, orthopnea, SOB at rest, shortness of breath, SOB with excertion, stridor, wheezing, others Cardiovascular: denies: chest pain, dizzy spells, diaphoresis, Dyspnea on exertion, edema, irregular heart beat, left arm pain, lightheadedness, palpitat ions, PND, syncope, others Gastrointestinal: reports: constipated; denies: abdomen distended, abdominal pain, blood streaked bowels, diarrhea, dysphagia, difficulty swallowing, hematemesis, melena, nausea, poor appetite, poor fluid intake, rectal bleeding, rectal pain, vomiting, others Genitourinary: denies: abnormal vagina bleeding, burning, dyspareunia, dysuria, flank pain, frequency, hematuria, incontinence, pain, , vagina discharge , urgency, others Neurological: denies: dizziness, fainting, headache, left sided numbness, left sided weakness, numbness, paresthesia, pre-existing deficit, right sided numbness, right sided weakness, seizure, speech problems, tingling, tremors, weakness, others Musculoskeletal: denies: back pain, gout, joint pain, joint swelling, muscle pain, muscle stiffness, neck pain, others Integumetry: denies: bruises, change in color, change in hair/nails, dryness, laceration, lesions, lumps, rash, wounds, others Allergic/Immunocompromised: denies: Difficulty Healing, Frequent Infections, Hives, Itching, others Hematologic/Lymphatic: denies: anemia, blood clots, easy bleeding, easy bruising, swollen glands, others Endocrine: denies: excessive hunger, excessive sweating, excessive thirst, excessive urination, flushing, intolerance to cold, intolerance to heat, unexplained weight gain, unexplained weight loss, others Psychiatric: denies: anxiety, bipolar disorder, depression, hopeless, panic di sorder, schizophrenia, sleepless, suicidal, others Physical Exam General Appearance: Mild Distress, None, Normal HEENT: Normal ENT Inspection, PERRL/EOMI Neck: Full Range of Motion, Non-Tender, Normal, Normal Inspection Respiratory: Chest Non-Tender, Lungs Clear, No Accessory Muscle Use, No Respiratory Distress Cardiovascular: No JVD, No Murmur, None, No Gallop, Regular Rate/Rhythm Breast Exam: Deferred Gastrointestinal: LLQ, Normal Bowel Sounds, Tenderness Genitalia: Deferred Pelvic: Deferred Rectal: Rectal Exam not done Extremities: No calf tenderness, Normal capillary refill, Normal inspection, Normal range of motion, Non-tender, No pedal edema Neurologic: No Motor Deficits, Normal Affect, Normal Mood, No Sensory Deficits Cerebellar Function: Normal Reflexes: NOT DONE Skin: Dry, None, Normal Color, Pallor Peripheral Pulses: 2+ dorsalis pedis (R), 2+ dorsalis pedis (L) Lymphatic: NOT DONE Was a procedure done? Was a procedure done?: No Differential Diagnosis (BRANCH SERVICE LEADER) Mass / Lesion: PID Comments Uterine malignancy Unspecified colitis Gastroenteritis Uterine leiomyoma X-Ray, Labs, Meds, VS Vital Signs Date Time Temp Pulse Resp B/P (MAP) Pulse Ox O2 Delivery O2 Flow Rate FiO2 10/17/25 12:52 98.4 73 16 130/92 (105) 98 98.4 10/17/25 10:45 74 18 143/85 10/17/25 10:37 98.2 74 18 143/85 (104) 96 98.2 10/17/25 10:37 74 18 98 Room Air 10/17/25 08:59 97.9 76 20 146/84 99 97.9 Lab Test 10/17/25 10:50 10/17/25 10:14 10/17/25 09:41 Range/Units Urine Color Yellow Yellow Urine Clarity Clear Clear Urine pH 7.0 5.0-9.0 Urine Specific [place] 1.026 1.001-1.035 Urine Protein 1+ H Negative Urine Ketones 1+ H Negative Urine Blood Negative Negative /uL Urine Nitrite Negative Negative Urine Bilirubin Negative Negative Urine Urobilinogen 12 H Negative mg/dL Urine Leukocyte Esterase Negative Negative /uL Urine RBC 1 0 - 4 /hpf Urine Microscopic WBC 2 0-5 /HPF Urine Squamous Epithelial Cells Few <5 /hpf Urine Bacteria None seen None Seen /hpf Urine Mucus Few None Seen Urine Glucose Normal Normal mg/dL Lactic Acid Level 0.7 0.4-2.0 mmol/L White Blood Count 11.0 H 4.4-10.8 10^3/uL Red Blood Count 4.60 4.0-5.20 10^6/uL Hemoglobin 9.5 L 12.2-16.2 g/dL Hematocrit 30.1 #L 36.0-46.0 % Mean Corpuscular Volume 65.5 L 80.0-100.0 fL Mean Corpuscular Hemoglobin 20.6 L 28.0-32.0 pg Mean Corpuscular Hemoglobin Concent 31.5 L 32.0-36.0 g/dL Red Cell Distribution Width 24.5 H 11.8-14.3 % Platelet Count 631 H 140-450 10^3/uL Mean Platelet Volume 7.4 6.9-10.8 fL Neutrophils (%) (Auto) 83.4 H 37.0-80.0 % Lymphocytes (%) (Auto) 10.8 10.0-50.0 % Monocytes (%) (Auto) 5.5 0.0-12.0 % Eosinophils (%) (Auto) 0.1 0.0-7.0 % Basophils (%) (Auto) 0.2 0.0-2.0 % Neutrophils # (Auto) 9.2 H 1.6-8.6 10 ^3/uL Lymphocytes # (Auto) 1.2 0.4-5.4 10 ^3/uL Monocytes # (Auto) 0.6 0-1.3 10 ^3/uL Eosinophils # (Auto) 0 0-0.8 10 ^3/uL Basophils # (Auto) 0 0-0.2 10 ^3/uL Nucleated Red Blood Cells 0.0 % Platelet Estimate Increased Hypochromasia (manual) Marked Poikilocytosis (manual) Slight Anisocytosis (manual) Moderate Microcytosis Marked Ovalocytes Moderate Sodium Level 141 136-145 mmol/L Potassium Level 4.2 3.5-5.1 mmol/L Chloride Level 103 98-107 mmol/L Carbon Dioxide Level 27 20-31 mmol/L Anion Gap 11 5-15 Blood Urea Nitrogen 11 9-23 mg/dL Creatinine 0.71 0.550-1.02 mg/dL Glomerular Filtration Rate Calc 108 >90 mL/min BUN/Creatinine Ratio 15.5 10.0-20.0 Serum Glucose 105 74-106 mg/dL Calcium Level 9.8 8.7-10.4 mg/dL Lipase 36 12-53 U/L Current Medications Medications (Trade) Dose Ordered Sig/Colin Route Start Time Stop Time Status Last Admin Morphine Sulfate 2 mg ONCE ONCE IV 10/17/25 09:30 10/17/25 09:31 DC 10/17/25 10:45 Ondansetron HCl (Zofran) 4 mg ONCE ONCE IV 10/17/25 09:30 10/17/25 09:31 DC 10/17/25 10:45 Time of 1ST Reevaluation: 10:00 Reevaluation 1ST: Unchanged Time of 2ND Reevaluation: 11:00 Reevaluation 2ND: Improved Time of 3RD Reevaluation: 12:30 Reevaluation 3RD: Worsened Patient Education/Counseling: Diagnosis, Treatment, Prognosis, Need For Follow Up Family Education/Counseling: No Family Present Departure 1 Departure Time of Disposition: 13:00 Impression: Primary Impression: Acute abdominal pain Additional Impressions: Endometrial mass Uterine leiomyoma Qualified Codes: D25.9 - Leiomyoma of uterus, unspecified Intractable pain Disposition: ADMITTED INPATIENT Condition: Guarded Comments Patient was given 1 dose of morphine 2 mg as well as Zofran 4 mg which initially improved her pain and she noted feeling better from prior, however, upon re- evaluation 2 hours later patient continued to experience 7/10 abdominal pain. Per patient she is unable to tolerate p.o. medications for abdominal pain relief due to her ongoing nausea and decreased oral intake. We will admit the patient for further evaluation and management. Critical Care Note Critical Care Time?: No Stability Stability form required: SAM Oneal RESIDENT Oct 17, 2025 09:27
[2025-10-17 09:54] LABS: Chloride 103 mmol/L (98-107); Potassium 4.2 mmol/L (3.5-5.1); Sodium 141 mmol/L (136-145)
[2025-10-17 09:55] LABS: Anion Gap 11 (5-15); Calcium 9.8 mg/dL (8.7-10.4); Carbon Dioxide 27 mmol/L (20-31); Nucleated Red Blood Cells % 0.0 %
[2025-10-17 09:58] LABS: Hematocrit 30.1 % (36.0-46.0); Hemoglobin 9.5 g/dL (12.2-16.2); Mean Corpuscular Hemoglobin 20.6 pg (28.0-32.0); Mean Corpuscular Volume 65.5 fL (80.0-100.0)
[2025-10-17 10:00] LABS: BUN/Creatinine Ratio 15.5 (10.0-20.0); Blood Urea Nitrogen 11 mg/dL (9-23); Glucose 105 mg/dL (74-106)
[2025-10-17] MEDS: MORPHINE SULFATE INJ 2 MG/ml SYRG IV ONE (10:45)
[2025-10-17] MEDS: ONDANSETRON HCL 4 MG/2 ML VIAL IV ONE (10:45)
[2025-10-17 11:06] LABS: Urine Protein, UAD 1+ (Negative)
[2025-10-17 11:34] LABS: Anisocytosis Moderate; Ovalocytes MODERATE
--- NOTE | 2025-10-17 13:14 | DVHHP2 ---
History of Present Illness Reason for Visit: Abdominal pain with nausea and vomiting History of Present Illness Yolis Anderson is a 45-year-old female with past medical history of uterine mass, gestational diabetes, gestational hypertension, anemia, cholecystectomy, and who presents to the ED with abdominal pain that has worsened over the last day, reports that the pain has been ongoing for 2 months. Patient was discharged here yesterday with a uterine mass and to follow up at [facility] haz tech Onc and has an appointment on 10/21/2025. Patient reports that the pain is 10/10 sharp stabbing and intermittent in nature. She reports that the pain is unbearable and came into the ED for evaluation. Patient denies any frequency, urgency, or dysuria. Patient reports that she has been vomiting 3 times so far food contents. Patient denies any recent travels, recent ingestion of spoiled food, recent sick contacts, recent trauma or injury, chest pain, shortness of breath, fever, chills, lightheadedness, weakness, or dizziness. Patient will be admitted for pain management with IV morphine. Cardiovascular: HTN Heme/Onc: Anemia NOS Endocrine: Diabetes Past Medical History Uterine mass Gestational diabetes Gestational hypertension Past Surgical History: Cholecystectomy, Family History: DM, Hypertension, Other (Dad with heart disease, hypertension, and diabetes now . Mom with diabetes and hypertension.) Smoke: No ALCOHOL: none Drugs: None Lives: with Family Domestic Violence: Neg Review of Systems Gastrointestinal: Nausea, Vomiting, Abdominal Pain Allergies: Coded Allergies: NO KNOWN ALLERGIES (Unverified , 08/13/25) Exam Vital Signs Vital Signs Date Time Temp Pulse Resp B/P (MAP) Pulse Ox O2 Delivery O2 Flow Rate FiO2 10/17/25 12:52 98.4 73 16 130/92 (105) 98 98.4 10/17/25 10:37 Room Air General Appearance: Alert, Oriented X3, Cooperative, No acute distress HEENT: Atraumatic, PERRLA, EOMI, Mucous membr. moist/pink Respiratory: Clear to auscultation, Normal air movement Cardiovascular: Regular rate, Normal S1, Normal S2, No murmurs Abdominal: Normal bowel sounds, Soft Extremities: No clubbing, No cyanosis, Normal pulses Neuro: Normal gait, Normal speech, Strength at 5/5 X4 ext, Normal tone, Sensation intact Psych/Mental Status: Mental status NL, Mood NL Labs/Xrays Labs Test 10/17/25 10:50 10/17/25 10:14 10/17/25 09:41 Range/Units Urine Color Yellow Yellow Urine Clarity Clear Clear Urine pH 7.0 5.0-9.0 Urine Specific [place] 1.026 1.001-1.035 Urine Protein 1+ H Negative Urine Ketones 1+ H Negative Urine Blood Negative Negative /uL Urine Nitrite Negative Negative Urine Bilirubin Negative Negative Urine Urobilinogen 12 H Negative mg/dL Urine Leukocyte Esterase Negative Negative /uL Urine RBC 1 0 - 4 /hpf Urine Microscopic WBC 2 0-5 /HPF Urine Squamous Epithelial Cells Few <5 /hpf Urine Bacteria None seen None Seen /hpf Urine Mucus Few None Seen Urine Glucose Normal Normal mg/dL Lactic Acid Level 0.7 0.4-2.0 mmol/L White Blood Count 11.0 H 4.4-10.8 10^3/uL Red Blood Count 4.60 4.0-5.20 10^6/uL Hemoglobin 9.5 L 12.2-16.2 g/dL Hematocrit 30.1 #L 36.0-46.0 % Mean Corpuscular Volume 65.5 L 80.0-100.0 fL Mean Corpuscular Hemoglobin 20.6 L 28.0-32.0 pg Mean Corpuscular Hemoglobin Concent 31.5 L 32.0-36.0 g/dL Red Cell Distribution Width 24.5 H 11.8-14.3 % Platelet Count 631 H 140-450 10^3/uL Mean Platelet Volume 7.4 6.9-10.8 fL Neutrophils (%) (Auto) 83.4 H 37.0-80.0 % Lymphocytes (%) (Auto) 10.8 10.0-50.0 % Monocytes (%) (Auto) 5.5 0.0-12.0 % Eosinophils (%) (Auto) 0.1 0.0-7.0 % Basophils (%) (Auto) 0.2 0.0-2.0 % Neutrophils # (Auto) 9.2 H 1.6-8.6 10 ^3/uL Lymphocytes # (Auto) 1.2 0.4-5.4 10 ^3/uL Monocytes # (Auto) 0.6 0-1.3 10 ^3/uL Eosinophils # (Auto) 0 0-0.8 10 ^3/uL Basophils # (Auto) 0 0-0.2 10 ^3/uL Nucleated Red Blood Cells 0.0 % Platelet Estimate Increased Hypochromasia (manual) Marked Poikilocytosis (manual) Slight Anisocytosis (manual) Moderate Microcytosis Marked Ovalocytes Moderate Sodium Level 141 136-145 mmol/L Potassium Level 4.2 3.5-5.1 mmol/L Chloride Level 103 98-107 mmol/L Carbon Dioxide Level 27 20-31 mmol/L Anion Gap 11 5-15 Blood Urea Nitrogen 11 9-23 mg/dL Creatinine 0.71 0.550-1.02 mg/dL Glomerular Filtration Rate Calc 108 >90 mL/min BUN/Creatinine Ratio 15.5 10.0-20.0 Serum Glucose 105 74-106 mg/dL Calcium Level 9.8 8.7-10.4 mg/dL Lipase 36 12-53 U/L MEDICAL RECORDS NUMBER: [id number] PROCEDURE: US PELVIC Date: 10/13/2025 04:09 AM HISTORY: Pelvic pain, L ovarian cyst COMPARISONS: US PELVIC on DOS: 08/26/25, US PELVIC on DOS: 08/13/25 TECHNIQUE:Transabdominal scanning is utilized. FINDINGS: Uterus: The uterus measures 11 cm by 11 cm by 9 cm. The endometrial cavity is distended with a large cystic appearing mass measuring 9 cm x 6 cm x 6 cm. This is similar to findings on recent prior studies but appears to have enlarged. Some echogenic debris is suspected within the fluid.. Right Ovary: The right ovary appears unremarkable. Arterial and venous vascular color and waveforms are with Doppler imaging. Left Ovary: The left ovary appears unremarkable.Arterial and venous vascular color and waveforms are with Doppler imaging. Adnexa: No adnexal masses are seen. Small amount of free fluid is seen in the posterior cul-de-sac. IMPRESSION: 1. Large cystic mass within the endometrial cavity. 2. This is similar to findings on recent prior studies but appears to have enlarged. 3. Manager Roofing evaluation and management is recommended. CLINICAL HISTORY: Uterine Mass. TECHNIQUE: Multi sequence Multi planar MRI images of the pelvis were obtained prior to and after the administration of 15 mL Clariscan contrast. COMPARISON: US PELVIC on DOS: 10/13/25, US PELVIC on DOS: 08/26/25, US PELVIC on DOS: 08/13/25 FINDINGS: Markedly distended endometrial canal of the uterus measuring up to 6.6 x 9.2 x 6.1 cm demonstrating mildly heterogeneous T1 and T2 hyperintense signal on the precontrast images. Difficult to evaluate for enhancement on postcontrast imaging due to the endometrium demonstrating T1 hyperintense signal on both pre and postcontrast images. No precontrast fat saturated T1 sequence was included in the protocol compare with the T1 fat saturated postcontrast images. Distention of the uterus may be due to complex fluid, including hemorrhage. Can not exclude superimposed mass component. Small nabothian cysts are seen in the cervix. There is a small to moderate amount of free fluid in the cul-de-sac. No suspicious adnexal mass. No pelvic lymphadenopathy. No other significant findings are seen. IMPRESSION: 1. Markedly distended endometrial canal of the uterus, appears to be due to complex fluid, possibly hemorrhage or other proteinaceous material. Difficult to evaluate for enhancing solid component given the similar-appearing signal characteristics on pre and postcontrast imaging. Correlate with clinical findings. 2. Small to moderate amount of free fluid in the cul-de-sac, may be physiologic fluid. No T1 hyperintense signal is seen to suggest hemorrhagic component of the free fluid. 3. Additional findings as described above. SEPSIS Sepsis Screen Date sepsis recognized/suspect: Oct 17, 2025 Time Sepsis recognized/suspect: 899 Recent Procedure: No On Antibiotic Therapy: No Respiratory Rate >20: No Heart Rate >90: No Temp<36 C (96.8 F) or >38.3 C: No SBP <90 or MAP <65 mmHG: No New Acute Mental Status Change: No Is the patient on CPAP, BIPAP,: No Vital Signs Date Time Temp Pulse Resp B/P (MAP) Pulse Ox O2 Delivery O2 Flow Rate FiO2 10/17/25 12:52 98.4 73 16 130/92 (105) 98 98.4 10/17/25 10:45 74 18 143/85 10/17/25 10:37 98.2 74 18 143/85 (104) 96 98.2 10/17/25 10:37 74 18 98 Room Air 10/17/25 08:59 97.9 76 20 146/84 99 97.9 Laboratory Tests Test 10/17/25 09:41 10/17/25 10:14 White Blood Count 11.0 10^3/uL (4.4-10.8) H Lactic Acid Level 0.7 mmol/L (0.4-2.0) Medications Medications Dose Ordered Sig/Colin Route Start Time Stop Time Status Last Admin Dose Admin Morphine Sulfate 2 mg ONCE ONCE IV 10/17/25 09:30 10/17/25 09:31 DC 10/17/25 10:45 2 MG Ondansetron HCl 4 mg ONCE ONCE IV 10/17/25 09:30 10/17/25 09:31 DC 10/17/25 10:45 4 MG Assessment/Plan Assessment/Plan Assessment Intractable abdominal pain with dizziness, nausea, and vomiting likely secondary to uterine mass Microcytic anemia Mild leukocytosis likely due to uterine mass History of gestational diabetes History of gestational hypertension History of anemia History of hypertension History of leiomyomas History of cholecystectomy History of Plan Admit to med surge Antiemetics Pain management - IV morphine Monitor H&H IV fluids Pelvic ultrasound noted on 10/13/25 MRI pelvis on 10/15 noted UA noted Diet Home medications reconciled DVT prophylaxis-SCDs PUD prophylaxis-not indicated history of GERD or GI bleed Discussed plan of care with patient and nurse Patient was discharged yesterday and to follow up at [facility] with haz tech Oncology on 10/21/2025 [id number] Preventive counseling healthy eating habits, physical activity, and regular checkups Plan discussed with: Patient Date of Service: Oct 17, 2025 Billing Provider: BERENICE DELVALLE Common Visit Codes: [id number] INP/OBS CARE (HIGH) Secondary Visit Codes: [id number] COUNSELING IND BERENICE DELVALLE Oct 17, 2025 13:14
[2025-10-17] MEDS ORDERED: ONDANSETRON HCL 4 MG/2 ML VIAL IV PRN (13:15)
[2025-10-17] MEDS ORDERED: ACETAMINOPHEN 325 MG TAB PO PRN (13:15)
[2025-10-17 14:38] VITALS: BP 181/98; PULSE 73; RESP 19; TEMP 97.9; O2SAT 90
[2025-10-17] MEDS: MORPHINE SULFATE INJ 2 MG/ml SYRG IV PRN (15:18)
[2025-10-17 17:00] VITALS: BP 175/95; PULSE 65; RESP 19; TEMP 98; O2SAT 97
[2025-10-17] MEDS ORDERED: HYDROcodone-ACET 5/325MG TAB ONE (17:10)
[2025-10-17] MEDS: HYDROcodone-ACET 5/325MG TAB PO PRN (17:12)
[2025-10-17 20:00] VITALS: PULSE 76; RESP 18
[2025-10-17 21:00] VITALS: BP 125/77; PULSE 70; RESP 17; TEMP 98; O2SAT 97
[2025-10-17] MEDS ORDERED: FERROUS SULFATE 325mg EC TAB PO ONE (22:46)
[2025-10-17] MEDS: FERROUS SULFATE 325mg EC TAB PO SCH (23:10)
[2025-10-18] VITALS (8 sets, daily range): BP systolic 127–149; BP diastolic 76–100; PULSE 64–96; RESP 17–20; TEMP 97.6–99.1; O2SAT 92–98
[2025-10-18] MEDS ORDERED: HYDROcodone-ACET 5/325MG TAB ONE (00:40)
[2025-10-18] MEDS ORDERED: MORPHINE SULFATE INJ 2 MG/ml SYRG ONE (05:17)
[2025-10-18 06:20] LABS: Nucleated Red Blood Cells % 0.0 %
[2025-10-18 06:23] LABS: Hematocrit 28.2 % (36.0-46.0); Hemoglobin 9.0 g/dL (12.2-16.2); Mean Corpuscular Hemoglobin 20.8 pg (28.0-32.0); Mean Corpuscular Volume 65.5 fL (80.0-100.0)
[2025-10-18 06:39] LABS: Alanine Aminotransferase 25 U/L (7-40); Anion Gap 10 (5-15); BUN/Creatinine Ratio 18.3 (10.0-20.0); Blood Urea Nitrogen 13 mg/dL (9-23); Calcium 9.6 mg/dL (8.7-10.4); Carbon Dioxide 29 mmol/L (20-31); Chloride 102 mmol/L (98-107); Glucose 79 mg/dL (74-106); Potassium 4.3 mmol/L (3.5-5.1); Sodium 141 mmol/L (136-145)
[2025-10-18 06:40] LABS: Albumin 4.6 g/dL (3.2-4.8)
[2025-10-18 06:43] LABS: Anisocytosis Moderate
[2025-10-18 06:44] LABS: Ovalocytes MODERATE
[2025-10-18 06:46] LABS: Alkaline Phosphatase 170 U/L (46-116); Bilirubin, Total 0.3 mg/dL (0.2-1.0); Total Protein 8.8 g/dL (5.7-8.2)
--- NOTE | 2025-10-18 12:46 | DVHPN2 ---
Changes from previous H/P or p: No Changes Gastrointestinal: Nausea, Vomiting, Abdominal Pain Objective Vitals Vital Signs Date Time Temp Pulse Resp B/P (MAP) Pulse Ox O2 Delivery O2 Flow Rate FiO2 10/18/25 09:24 71 20 151/93 10/18/25 08:30 98.7 98 98.7 10/18/25 08:00 Room Air* 0 21 Intake/Output Intake and Output 10/18/25 07:00 Intake Total 930 ml Balance 930 ml Intake Oral 930 ml # Voids 4 # Bowel Movements 1 Medications Current Medications Medications Dose Ordered Sig/Colin Route Start Time Stop Time Status Last Admin Dose Admin Ferrous Sulfate 325 mg BID PO 10/17/25 22:00 10/18/25 09:19 325 MG Acetaminophen/ Hydrocodone Bitart 1 tab Q4HP PRN PO 10/17/25 13:15 10/18/25 00:42 1 TAB Ondansetron HCl 4 mg Q4HP PRN IV 10/17/25 13:15 Acetaminophen 650 mg Q6HP PRN PO 10/17/25 13:15 Morphine Sulfate 2 mg Q4HPRN PRN IV 10/17/25 13:15 10/18/25 09:24 2 MG Laboratory Results Laboratory Tests 10/18/25 04:52 Chemistry Test 10/18/25 04:52 Albumin 4.6 g/dL (3.2-4.8) Calcium Level 9.6 mg/dL (8.7-10.4) Total Protein 8.8 g/dL (5.7-8.2) H LFT Test 10/18/25 04:52 Alanine Aminotransferase (ALT) 25 U/L (7-40) Alkaline Phosphatase 170 U/L (46-116) H Aspartate Amino Transferase (AST) 18 U/L (13-40) Total Bilirubin 0.3 mg/dL (0.2-1.0) Urinalysis Test 10/17/25 10:50 Urine Color Yellow (Yellow) Urine Clarity Clear (Clear) Urine pH 7.0 (5.0-9.0) Urine Specific [place] 1.026 (1.001-1.035) Urine Protein 1+ (Negative) H Urine Ketones 1+ (Negative) H Urine Blood Negative /uL (Negative) Urine Nitrite Negative (Negative) Urine Bilirubin Negative (Negative) Urine Urobilinogen 12 mg/dL (Negative) H Urine Leukocyte Esterase Negative /uL (Negative) Urine RBC 1 /hpf (0 - 4) Urine Microscopic WBC 2 /HPF (0-5) Urine Squamous Epithelial Cells Few /hpf (<5) Urine Bacteria None seen /hpf (None Seen) Urine Mucus Few (None Seen) Urine Glucose Normal mg/dL (Normal) Labs and/or images reviewed: Labs reviewed by me, Image(s) reviewed by me Assessment/Plan Assessment/Plan Intractable abdominal pain with dizziness, nausea, and vomiting likely secondary to uterine mass : Consult for COLLAR SHAPER OPERATOR Dr. Gan Anemia of chronic disease hemoglobin 9.9 History of leiomyomas History of cholecystectomy Plan discussed with: Patient My Orders Orders - ABBE VILLA MD Procedure Category Date Status Time Mrsa Screen YANDEL 10/18/25 Logged 11:35 * Foil Stamp Operator Consultation CONS 10/18/25 Transmitted 12:40 Date of Service: Oct 18, 2025 Billing Provider: ABBE VILLA MD Common Visit Codes: [id number] INP/OBS CARE(HIGH) ABBE VILLA MD Oct 18, 2025 12:46
[2025-10-18] MEDS: ALPRAZolam 0.5 MG TAB PO SCH (14:05)
[2025-10-18] MEDS ORDERED: ALPRAZolam 0.5 MG TAB ONE (21:30)
[2025-10-19 05:00] VITALS: BP 139/95; PULSE 96; RESP 16; TEMP 97.9; O2SAT 100
[2025-10-19] MEDS ORDERED: ALPRAZolam 0.5 MG TAB ONE (06:15)
[2025-10-19 08:00] VITALS: PULSE 98; RESP 21; O2SAT 96
[2025-10-19 09:00] VITALS: BP 144/103; PULSE 98; RESP 21; TEMP 97.9; O2SAT 96
--- NOTE | 2025-10-19 09:33 | DVHPN2 ---
Reviewed: Care Plan, H&P, Labs, Medications, Previous Orders, Radiology Changes from previous H/P or p: No Changes Gastrointestinal: Nausea, Vomiting, Abdominal Pain Objective Vitals Vital Signs Date Time Temp Pulse Resp B/P (MAP) Pulse Ox O2 Delivery O2 Flow Rate FiO2 10/19/25 05:00 97.9 96 16 139/95 (110) 100 97.9 10/18/25 20:00 Room Air* 0 21 Intake/Output Intake and Output 10/19/25 07:00 Intake Total 880 ml Balance 880 ml Intake Oral 880 ml # Voids 3 Medications Current Medications Medications Dose Ordered Sig/Colin Route Start Time Stop Time Status Last Admin Dose Admin Ferrous Sulfate 325 mg BID PO 10/17/25 22:00 10/18/25 21:32 325 MG Acetaminophen/ Hydrocodone Bitart 1 tab Q4HP PRN PO 10/17/25 13:15 10/18/25 20:12 1 TAB Ondansetron HCl 4 mg Q4HP PRN IV 10/17/25 13:15 Acetaminophen 650 mg Q6HP PRN PO 10/17/25 13:15 Morphine Sulfate 2 mg Q4HPRN PRN IV 10/17/25 13:15 10/18/25 22:51 2 MG Alprazolam 1 mg TID PO 10/18/25 14:00 10/19/25 06:30 1 MG Laboratory Results Laboratory Tests 10/18/25 04:52 Urinalysis Test 10/17/25 10:50 Urine Color Yellow (Yellow) Urine Clarity Clear (Clear) Urine pH 7.0 (5.0-9.0) Urine Specific [place] 1.026 (1.001-1.035) Urine Protein 1+ (Negative) H Urine Ketones 1+ (Negative) H Urine Blood Negative /uL (Negative) Urine Nitrite Negative (Negative) Urine Bilirubin Negative (Negative) Urine Urobilinogen 12 mg/dL (Negative) H Urine Leukocyte Esterase Negative /uL (Negative) Urine RBC 1 /hpf (0 - 4) Urine Microscopic WBC 2 /HPF (0-5) Urine Squamous Epithelial Cells Few /hpf (<5) Urine Bacteria None seen /hpf (None Seen) Urine Mucus Few (None Seen) Urine Glucose Normal mg/dL (Normal) Microbiology Microbiology Date/Time Source Procedure Growth Status 10/18/25 11:35 Nose MRSA Screen - Final Complete Labs and/or images reviewed: Labs reviewed by me, Image(s) reviewed by me Assessment/Plan Assessment/Plan Intractable abdominal pain with dizziness, nausea, and vomiting likely secondary to uterine cancer: Consult for MANAGER READING Dr. Gan, Dr Gan texted me and asked me to discharge the patient and follow up with the oncologist at [place] Anemia of chronic disease hemoglobin 9.9 History of leiomyomas History of cholecystectomy at the bedside and does not want pt to be discharged FABIEN Meyer at bedside while discussing the discharge plan Plan discussed with: Patient My Orders Orders - ABBE VILLA MD Procedure Category Date Status Time * Manager Office Services Consultation CONS 10/18/25 Transmitted 12:40 Alprazolam Tablet PHA 10/18/25 In Process (Xanax Tablet) 14:00 Date of Service: Oct 19, 2025 Billing Provider: ABBE VILLA MD Common Visit Codes: [id number] INP/OBS CARE(HIGH) ABBE VILLA MD Oct 19, 2025 09:33
[2025-10-19] MEDS ORDERED: ALPR1TAB2 PO (09:37)
[2025-10-19] MEDS ORDERED: HYDR-4902 PO (09:37)
[2025-10-19] MEDS ORDERED: ZOFR4T PO (09:37)
--- NOTE | 2025-10-19 09:48 | DVHDS2 ---
Discharge Summary Date of Admission Oct 17, 2025 at 13:15 Date of Discharge: Oct 19, 2025 Admitting Diagnosis Abdominal pain nausea and vomiting Wounds: None Labs/Diagnostic Data: Laboratory Results Test 10/18/25 04:52 10/17/25 10:50 10/17/25 10:14 10/17/25 09:41 White Blood Count 9.3 10^3/uL (4.4-10.8) Red Blood Count 4.31 10^6/uL (4.0-5.20) Hemoglobin 9.0 g/dL (12.2-16.2) Hematocrit 28.2 % (36.0-46.0) Mean Corpuscular Volume 65.5 fL (80.0-100.0) Mean Corpuscular Hemoglobin 20.8 pg (28.0-32.0) Mean Corpuscular Hemoglobin Concent 31.8 g/dL (32.0-36.0) Red Cell Distribution Width 25.3 % (11.8-14.3) Platelet Count 594 10^3/uL (140-450) Mean Platelet Volume 7.3 fL (6.9-10.8) Neutrophils (%) (Auto) 68.4 % (37.0-80.0) Lymphocytes (%) (Auto) 23.1 % (10.0-50.0) Monocytes (%) (Auto) 7.6 % (0.0-12.0) Eosinophils (%) (Auto) 0.5 % (0.0-7.0) Basophils (%) (Auto) 0.4 % (0.0-2.0) Neutrophils # (Auto) 6.4 10 ^3/uL (1.6-8.6) Lymphocytes # (Auto) 2.1 10 ^3/uL (0.4-5.4) Monocytes # (Auto) 0.7 10 ^3/uL (0-1.3) Eosinophils # (Auto) 0 10 ^3/uL (0-0.8) Basophils # (Auto) 0 10 ^3/uL (0-0.2) Nucleated Red Blood Cells 0.0 % Platelet Estimate Increased Hypochromasia (manual) Marked Poikilocytosis (manual) Slight Anisocytosis (manual) Moderate Microcytosis Marked Ovalocytes Moderate Sodium Level 141 mmol/L (136-145) Potassium Level 4.3 mmol/L (3.5-5.1) Chloride Level 102 mmol/L (98-107) Carbon Dioxide Level 29 mmol/L (20-31) Anion Gap 10 (5-15) Blood Urea Nitrogen 13 mg/dL (9-23) Creatinine 0.71 mg/dL (0.550-1.02) Glomerular Filtration Rate Calc 108 mL/min (>90) BUN/Creatinine Ratio 18.3 (10.0-20.0) Serum Glucose 79 mg/dL (74-106) Calcium Level 9.6 mg/dL (8.7-10.4) Total Bilirubin 0.3 mg/dL (0.2-1.0) Aspartate Amino Transferase (AST) 18 U/L (13-40) Alanine Aminotransferase (ALT) 25 U/L (7-40) Alkaline Phosphatase 170 U/L (46-116) Total Protein 8.8 g/dL (5.7-8.2) Albumin 4.6 g/dL (3.2-4.8) Urine Color Yellow (Yellow) Urine Clarity Clear (Clear) Urine pH 7.0 (5.0-9.0) Urine Specific [place] 1.026 (1.001-1.035) Urine Protein 1+ (Negative) Urine Ketones 1+ (Negative) Urine Blood Negative /uL (Negative) Urine Nitrite Negative (Negative) Urine Bilirubin Negative (Negative) Urine Urobilinogen 12 mg/dL (Negative) Urine Leukocyte Esterase Negative /uL (Negative) Urine RBC 1 /hpf (0 - 4) Urine Microscopic WBC 2 /HPF (0-5) Urine Squamous Epithelial Cells Few /hpf (<5) Urine Bacteria None seen /hpf (None Seen) Urine Mucus Few (None Seen) Urine Glucose Normal mg/dL (Normal) Lactic Acid Level 0.7 mmol/L (0.4-2.0) Lipase 36 U/L (12-53) Other Laboratory Tests 10/18/25 04:52 Brief Hx & Hospital Course: 65-year-old female with a known diagnosis of uterine cancer discharged from this hospital on 10/15/2025 and was set up follow up appointment with the oncologist at [facility]. Unknown whether she followed up came in complaining of abdominal pain nausea vomiting and dizziness. CT abdomen pelvis confirmed the presence of uterine mass consulted Dr. Gan who is familiar with the patient's from the previous visit advised the patient to be discharged home to follow up with the [facility] as soon as possible with the oncologist at [facility]. at the bedside and he has refused to be discharged, FABIEN Meyer at bedside Prescription for Xanax for anxiety [place] for the pain and Zofran for nausea transmitted to the pharmacy Consults/Reason for consult staff consultant Dr Gan Operations or Procedures CT abdomen pelvis without contrast Condition at Discharge: Fair Final Diagnosis/Problems List Intractable abdominal pain with dizziness, nausea, and vomiting likely secondary to uterine cancer: Consult for WHEEL CUTTER Dr. Gan, Dr Gan texted me and asked me to discharge the patient and follow up with the oncologist at [place] Anemia of chronic disease hemoglobin 9.9 History of leiomyomas History of cholecystectomy Discharge Disposition: Home Discharge Instruct/Medications Diet: Regular Activity: Light activity Follow Up/Referral: Follow up with your gynecology oncologist at [facility] Medications: Zofran [place] Xanax Transmitted to pharmacy Scheduled Acetaminophen (Acetaminophen), 325 MG PO TID Docusate Sodium (Docusate Sodium), 1 CAP PO BID, (Reported) Docusate Sodium (Colace), 1 CAP PO BID Ferrous Sulfate (Ferosul), 325 MG PO BID, (Reported) Oxycodone W/ Acetaminophen (Percocet 5/325MG), 1 TAB PO QID Scheduled PRN Alprazolam (Xanax), 1 TAB PO TID PRN Hydrocodone-Acetaminophen (Hydrocodone Bitartrate/AC 5-325 mg), 1 TAB PO Q8HP PRN Hydrocodone-Acetaminophen (Hydrocodone Bitartrate/AC 5-325 mg), 1 TAB PO QID PRN Ondansetron HCl (Ondansetron), 4 MG PO Q6HPRN PRN Ondansetron Odt 4MG Tab (Zofran Po), 4 MG PO QID PRN Discontinued Medications Ferrous Sulfate (Ferrous Sulfate), 1 TAB PO BID Discharge Statement: "Patient was advised to return to the ER or call 911 if any headaches, dizziness, shortness of breath, chest pain, abdominal pain, bleeding, fevers, or worsening of medical condition. Patient was counseled about treatment plan, medications, possible side effects, patientverbalized understanding. All questions were answered to the best of my ability. This discharge took greater then 30 minutes in planning, reviewing documentation, counseling the patient, and discussing with other team members." ASSESSMENT ASSESSMENT Hospital Course Marginal improvement in the symptoms Assessment Intractable abdominal pain with dizziness, nausea, and vomiting likely secondary to uterine cancer: Consult for WHEEL CUTTER Dr. Gan, Dr Gan texted me and asked me to discharge the patient and follow up with the oncologist at [place] Anemia of chronic disease hemoglobin 9.9 History of leiomyomas History of cholecystectomy Date of Service: Oct 19, 2025 Billing Provider: ABBE VILLA MD Common Visit Codes: [id number]/[id number] DISCH DAY >30min ABBE VILLA MD Oct 19, 2025 09:48
[2025-10-19 12:07] VITALS: BP 144/103; PULSE 98; RESP 21; TEMP 97.9; O2SAT 96
[2025-10-19 12:30] VITALS: BP 145/97; PULSE 77; RESP 18; TEMP 97.8; O2SAT 96
[2025-10-20 11:28] LABS: Hepatitis B Surface Antigen Negative (Negative)
[2025-10-20 11:50] LABS: Hepatitis C Antibody Negative (Negative)
== END 2025-10-19 12:50 | disposition home or self-care (01) | DRG 530 ==
LOC: EDBD 08:41 → EDUNIT# 08:41 → ER 08:41 → OVERFLOW 13:15 → EAST 10-18 01:37
DX: C55 Malignant neoplasm of uterus, part unspecified (principal); D63.8 Anemia in other chronic diseases classified elsewhere; I10 Essential (primary) hypertension; D50.9 Iron deficiency anemia, unspecified; D72.829 Elevated white blood cell count, unspecified; E11.9 Type 2 diabetes mellitus without complications; Z90.49 Acquired absence of other specified parts of digestive tract; Z98.891 History of uterine scar from previous surgery; Z82.49 Family history of ischemic heart disease and other diseases of the circulatory system; Z83.3 Family history of diabetes mellitus
CPT/HCPCS: 36415; 80048; 80053; 81001; 83605; 83690; 85025; 86803; 87081; 87340; G0378

== ENCOUNTER 2025-10-27 22:38 | Emergency (ER) | payer MEDICAID ==
[~2025-10-27] VITALS: Ht 165.1 cm; Wt 73.3 kg
[~2025-10-27 22:38] MED LIST changes: +ALPR1TAB2 PO; +ZOFR4T PO
--- NOTE | 2025-10-27 23:08 | ED.PDOC ---
History of Present Illness HPI Comments 45-year-old female who is brought in by EMS for chief complaint of shortness of breath, dizziness, and nausea. Per EMS personnel report, patient was driving home from her mother's house when she had sudden onset of symptoms before pulling over and calling EMS. She admits to being anxious and stressed earlier today due to recent in her family and is on pain medications and antibiotics following uterine blood clot removal procedure on 10/21/25. Vitals were stable and within normal limits, with exception of an initial blood pressure of 164/99. Initial blood glucose was 148. Symptoms have resolved upon arrival to ED. She denies any having any chest pain, leg swelling, or further a cute symptoms. Chief Complaint: Shortness of Breath Time Seen by MD: 22:45 Primary Care Provider: None Reviewed Notes: Nurses Notes Allergies: Coded Allergies: NO KNOWN ALLERGIES (Unverified , 08/13/25) Home Meds Active Scripts Ondansetron Odt 4MG Tab (ZOFRAN PO) 4 Mg Tb, 4 MG PO QID PRN, #30 TAB ODT TAB-DISSOLVE IN MOUTH, THEN SWALLOW Prov:ABBE VILLA MD 10/19/25 Hydrocodone-Acetaminophen (Hydrocodone Bitartrate/AC 5-325 mg) 1 Tab Tab, 1 TAB PO QID PRN, #30 TAB Prov:ABBE VILLA MD 10/19/25 Alprazolam (Xanax) 1 Mg Tab, 1 TAB PO TID PRN, #30 TAB Prov:ABBE VILLA MD 10/19/25 Docusate Sodium (Colace) 100 Mg Cap, 1 CAP PO BID for 30 Days, #30 CAP Prov:MONY RANDLE NP 10/16/25 Oxycodone W/ Acetaminophen (Percocet 5/325MG) 1 Tab Tb, 1 TAB PO QID for 7 Days, #28 TAB Prov:MONY RANDLE NP 10/16/25 Ondansetron HCl (Ondansetron) 4 Mg Tab, 4 MG PO Q6HPRN PRN for 3 Days, #12 TAB Prov:FAITH OLIVARES MD 09/13/25 Hydrocodone-Acetaminophen (Hydrocodone Bitartrate/AC 5-325 mg) 1 Tab Tab, 1 TAB PO Q8HP PRN for 5 Days, #15 TAB Prov:MONY RANDLE CLAY HOUSE WORKER 08/14/25 Acetaminophen (Acetaminophen) 325 Mg Tab, 325 MG PO TID for 7 Days, #21 TAB 0 Refills Prov:ZULY DELGADILLO CLAY HOUSE WORKER 08/12/24 Reported Medications Docusate Sodium (Docusate Sodium) 100 Mg Cap, 1 CAP PO BID 08/13/25 Ferrous Sulfate (Ferosul) 325 Mg Tab, 325 MG PO BID 08/13/25 Information Source: Patient, Emergency Med Personnel Mode of Arrival: EMS Severity: Moderate Timing: Hours Duration: Minutes Prehospital treatment: 12 Lead EKG, 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, 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[employer] Past Medical History PAST MEDICAL HISTORY: Anemia, HTN Surgical History: Cholecystectomy, 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 Hx Family History Family History: Reviewed,noncontributory to illness Social History Smoker: Non-Smoker Alcohol: Denies ETOH Use Drugs: Denies Drug Use Lives In: Home All Other Systems: Reviewed and Negative (Comprehensive review of systems are negative unless otherwise stated in HPI) Physical Exam General Appearance: No Apparent Distress, Normal HEENT: Normal ENT Inspection, Pharynx Normal, TMs Normal Neck: Full Range of Motion, Non-Tender, Normal, Normal Inspection Respiratory: Chest Non-Tender, Lungs Clear, No Accessory Muscle Use, No Respiratory Distress, Normal Breath Sounds Cardiovascular: No Edema, No JVD, No Murmur, No Gallop, Normal Peripheral Pulses, Regular Rate/Rhythm Breast Exam: Deferred Gastrointestinal: No Organomegaly, Non Tender, No Pulsatile Mass, Normal Bowel Sounds, Soft Genitalia: Deferred Pelvic: Deferred Rectal: Deferred Extremities: No calf tenderness, Normal capillary refill, Normal inspection, Normal range of motion, Non-tender, No pedal edema Musculoskeletal : Apperance: Normal 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 Was a procedure done?: No EKG EKG : Pulse Rate (adult): 84 [place]: Normal Cardiac Rhythm: NSR Block: None Hypertrophy: None ST: Normal Differential Dx Considerations may include: Anxiety, panic attack, URI, pneumonia, mi, PE, anemia, among others X-Ray, Labs, Meds, VS Vital Signs Date Time Temp Pulse Resp B/P (MAP) Pulse Ox O2 Delivery O2 Flow Rate FiO2 10/28/25 01:39 18 99 Room Air* 0 21 21 10/28/25 01:38 99.0 76 14 137/86 (103) 99 99.0 10/27/25 23:21 84 10/27/25 23:14 84 10/27/25 22:44 98.3 76 20 166/99 100 98.3 Lab Test 10/27/25 23:59 10/27/25 23:00 Range/Units Troponin I High Sensitivity 4 < 3 L </=34 ng/L White Blood Count 8.6 4.4-10.8 10^3/uL Red Blood Count 4.28 4.0-5.20 10^6/uL Hemoglobin 8.7 L 12.2-16.2 g/dL Hematocrit 28.0 L 36.0-46.0 % Mean Corpuscular Volume 65.5 L 80.0-100.0 fL Mean Corpuscular Hemoglobin 20.3 L 28.0-32.0 pg Mean Corpuscular Hemoglobin Concent 31.0 L 32.0-36.0 g/dL Red Cell Distribution Width 24.4 H 11.8-14.3 % Platelet Count 666 H 140-450 10^3/uL Mean Platelet Volume 7.3 6.9-10.8 fL Neutrophils (%) (Auto) 72.5 37.0-80.0 % Lymphocytes (%) (Auto) 21.0 10.0-50.0 % Monocytes (%) (Auto) 5.6 0.0-12.0 % Eosinophils (%) (Auto) 0.5 0.0-7.0 % Basophils (%) (Auto) 0.4 0.0-2.0 % Neutrophils # (Auto) 6.3 1.6-8.6 10 ^3/uL Lymphocytes # (Auto) 1.8 0.4-5.4 10 ^3/uL Monocytes # (Auto) 0.5 0-1.3 10 ^3/uL Eosinophils # (Auto) 0 0-0.8 10 ^3/uL Basophils # (Auto) 0 0-0.2 10 ^3/uL Nucleated Red Blood Cells 0.0 % Prothrombin Time 10.7 9.3-11.8 sec Prothrombin Time INR 1.01 0.9-1.15 Activated Partial Thromboplast Time 25.6 24.5-34.5 SEC Sodium Level 140 136-145 mmol/L Potassium Level 3.4 L 3.5-5.1 mmol/L Chloride Level 105 98-107 mmol/L Carbon Dioxide Level 24 20-31 mmol/L Anion Gap 11 5-15 Blood Urea Nitrogen 11 9-23 mg/dL Creatinine 0.65 0.550-1.02 mg/dL Glomerular Filtration Rate Calc 112 >90 mL/min BUN/Creatinine Ratio 16.9 10.0-20.0 Serum Glucose 123 H 74-106 mg/dL Calcium Level 9.6 8.7-10.4 mg/dL B-Type Natriuretic Peptide 3.57 0-100 pg/mL Lipase 64 H 12-53 U/L X-Ray, Labs, Meds, VS Comment Patient presents with shortness of breath, chest pain, dizziness found driving this evening. Patient recently had a surgery last week, and is also under significant stress due to recent in her family. Symptoms resolved upon arrival, and NIHSS 0 upon arrival to the ED. Lab work (CBC, BMP) to evaluate for evidence of severe anemia, electrolyte abnormality including hypokalemia, hyperkalemia, hypernatremia, hyponatremia, hyperglycemia, hypoglycemia, etc. EKG and troponin to evaluate for evidence of arrhythmia, ACS, AMI CT angio chest to evaluate for PE or dissection Re-evaluate Social determinant surveillance affecting care: Social determinants of health that will affect the patient's care: Poor health literacy (additional time provided an explanation) Poor access to outpatient care/followup (provided outpatient resources) Time of 1ST Reevaluation: 23:25 Reevaluation 1ST: Unchanged Patient Education/Counseling: Diagnosis, Treatment, Need For Follow Up Family Education/Counseling: No Family Present SEPSIS Sepsis Screen Date sepsis recognized/suspect: Oct 27, 2025 Time Sepsis recognized/suspect: 2238 Recent Procedure: No On Antibiotic Therapy: No Respiratory Rate >20: No Heart Rate >90: No Temp<36 C (96.8 F) or >38.3 C: No SBP <90 or MAP <65 mmHG: No New Acute Mental Status Change: No Is the patient on CPAP, BIPAP,: No Physician Orders Ct Angio Chest Contrast (10/27/25 22:54) Electrocardigram (10/27/25 22:54) Electrocardigram (10/27/25 23:54) Electrocardigram (10/28/25 01:54) Vital Signs Date Time Temp Pulse Resp B/P (MAP) Pulse Ox O2 Delivery O2 Flow Rate FiO2 10/28/25 01:39 18 99 Room Air* 0 21 21 10/28/25 01:38 99.0 76 14 137/86 (103) 99 99.0 10/27/25 23:21 84 10/27/25 23:14 84 10/27/25 22:44 98.3 76 20 166/99 100 98.3 Laboratory Tests Test 10/27/25 23:00 White Blood Count 8.6 10^3/uL (4.4-10.8) Departure 1 Departure Time of Disposition: 03:40 (On reassessment, patient's symptoms now resolved. Patient found to be anemic, however has a known history of anemia and no active bleeding, so does not require transfusion at this time. CT angio negative for PE or dissection. Discussed with patient Outpatient follow-up with her PMD and surgeon. Given strict return precautions and PMD follow-up.) Impression: Primary Impression: Acute chest pain Additional Impressions: Acute dyspnea Near syncope Anemia Qualified Codes: D64.9 - Anemia, unspecified Disposition: HOME / SELF CARE / HOMELESS Condition: Stable Discharged With: Self Critical Care Note Critical Care Time?: No Stability Stability form required: No Heart Score Heart Score: Heart Score Response (Comments) Value History Slightly Suspicious 0 EKG Normal 0 Age <45 0 Risk Factors 1 or 2 risk factors 1 Troponin Normal limit 0 Total 1 I personally scribed for CALE MANCUSO MD ([email or web address]) on 10/27/25 at 23:08. Electronically submitted by Mohamud Christy ([email or web address]). I personally scribed for CALE MANCUSO MD ([email or web address]) on 10/27/25 at 23:21. Electronically submitted by Mohamud Christy ([email or web address]). CALE MANCUSO MD Oct 27, 2025 23:08
[2025-10-27 23:19] LABS: Hematocrit 28.0 % (36.0-46.0); Hemoglobin 8.7 g/dL (12.2-16.2); Nucleated Red Blood Cells % 0.0 %
[2025-10-27 23:21] LABS: Mean Corpuscular Hemoglobin 20.3 pg (28.0-32.0); Mean Corpuscular Volume 65.5 fL (80.0-100.0)
[2025-10-27 23:32] LABS: Chloride 105 mmol/L (98-107); Sodium 140 mmol/L (136-145)
[2025-10-27 23:33] LABS: Anion Gap 11 (5-15); Calcium 9.6 mg/dL (8.7-10.4); Carbon Dioxide 24 mmol/L (20-31); INR 1.01 (0.9-1.15); Partial Thromboplastin Time 25.6 SEC (24.5-34.5); Prothrombin Time 10.7 sec (9.3-11.8)
[2025-10-27 23:35] LABS: Potassium 3.4 mmol/L (3.5-5.1)
[2025-10-27 23:38] LABS: BUN/Creatinine Ratio 16.9 (10.0-20.0); Blood Urea Nitrogen 11 mg/dL (9-23)
[2025-10-27 23:44] LABS: Glucose 123 mg/dL (74-106); Lipase 64 U/L (12-53)
[2025-10-28 03:54] VITALS: BP 130/78; PULSE 84; RESP 18; TEMP 98.9; O2SAT 96
--- NOTE | 2025-10-28 05:04 | DVH ---
: Viki PRADO/: 45YR (1980)Gender: FemalePhone: [phone]: NA Order Info Location: [facility] Modality: CT Procedure Desc: CT CT ANGIO CHEST CONTRAST DOS: 10/27/2025 01:20 wRVU: NA Pending Since: NA Reason: SOB Status: Complete Tag: NA Type/Priority: Emergency / STAT STAT Stroke: NO Physician Info Ordering: CALE MANCUSO Rendering: CHANG GLASS Report Date: 10/28/2025Report Status: Final Search ANY 8M 1Y [address] US DX MR CT CT ANGIO CHEST CONTRAST DOS : 10/27/2025 [facility] MRI PELVIS WITH CONTRAST MRI DOS : 10/15/2025 [facility] US PELVIC DOS : 10/13/2025 [facility] XY CHEST XRAY 1 VIEW DOS : 09/13/2025 [facility] US PELVIC DOS : 08/26/[address] [facility] [address] AB PEL WITH IV CON ONLY DOS : 08/26/2025 [facility] US PELVIC DOS : 08/13/[address] [facility] [address] AB PEL WITH IV CON ONLY DOS : 08/13/2025 [facility] EXAM: CT ANGIO CHEST CONTRAST History: SOB Comparison Study: XY CHEST XRAY 1 VIEW on DOS: 09/13/25 TECHNIQUE: A digital staff air defense officer image was obtained. During the uneventful, intravenous administration of contrast material, multislice data acquisition was obtained through the chest. 3-D postprocessing is performed by technologist including MIP imaging Radiation Dose : CTDI vol 25.3 mGy, DLP 1016.6 mGy*cm. Findings: Evaluation is degraded by respiratory motion. Lungs: The lungs are clear. Pleura: Unremarkable Heart/Great vessels: The heart is borderline in size. No CT evidence of acute pulmonary embolism. Mediastinum: Unremarkable. Soft tissues/Bones: Unremarkable Upper abdomen: Prior cholecystectomy. Impression: 1. No CT evidence of pulmonary embolism or acute intrathoracic abnormality. 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
--- NOTE | 2025-10-28 07:43 | ECG ---
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
== END 2025-10-28 04:03 | disposition home or self-care (01) ==
LOC: EDBD 22:38 → ER 22:38
DX: D64.9 Anemia, unspecified (principal); R07.89 Other chest pain; R06.00 Dyspnea, unspecified; R55 Syncope and collapse; I10 Essential (primary) hypertension; Z90.49 Acquired absence of other specified parts of digestive tract; Z79.899 Other long term (current) drug therapy
CPT/HCPCS: 36415; 71275; 80048; 83690; 83880; 84484; 85025; 85610; 85730; 93005; 99285; Q9967